=== PATIENT | male | born 1950 | race Caucasian/White ===

== ENCOUNTER 2017-07-06 06:16 | Day surgery (SDC) | payer OTHER ==
--- NOTE | 2017-07-05 15:08 | HP ---
CC: Dr. Wilder DeL a Garza DATE OF ADMISSION: 07/06/2017. AGE: 66-year-old male. ADMITTING DIAGNOSES: 1. Hematuria. 2. Recurrent superficial bladder cancer. PLANNED PROCEDURE: Transurethral resection of bladder tumor. SURGEON: Dr. Andrew. HISTORY OF PRESENT ILLNESS: Anselmo Zuleta is a 66-year-old gentleman with a long- standing smoking hi story and a history of recurrent superficial bladder cancer. He had undergone cystoscopy in my office on April 06 which had seen multiple superficial papillary tumors in the anterior bladder neck. There was no evidence of muscle invasive appearing tumor. PAST MEDICAL HISTORY: Significant for: 1. Recurrent superficial bladder cancer. 2. History of renal calculi. 3. Hypertension. MEDICATIONS ON ADMISSION: 1. Diltiazem 180 mg daily. 2. Losartan potassium 100 mg daily. 3. Hydrochlorothiazide 12.5 mg daily. 4. Aspirin mlak-j-gyfczh daily. 5. Fish oil and supplements. ALLERGIES: No known drug allergies. PHYSICAL EXAMINATION GENERAL: Pleasant, healthy-appearing, middle-aged gentleman. VITAL SIGNS: Blood pressure 130/92, pulse 100 per minute and regular, oxygen saturation 93 percent o n room air. CARDIOVASCULAR: Regular rate and rhythm. S1, S2. LUNGS: Clear bilaterally. ABDOMEN: Soft without masses. IMPRESSION AND PLAN: Okbin-lzco-vehj-old gentleman with a long-standing smoking history and a histo ry of recurrent superficial bladder cancer for which he has had multiple procedures over the last eig ht to nine years. He is now being brought in for transurethral resection of what appear to be multip le superficial bladder tumors. [id number]/[facility] #: [id number]
[~2017-07-06 06:16] MED LIST: Buffered Lidocaine 0.9% SYRIN* 5 ML/SYR SYRINGE INTRADERM ONE; Dexamethasone IV* 4 MG/ML 1 ML (4 MG) IV SLOW PU ONE; Famotidine IV* 10 MG/ML 2 ML (20 mg) IV ONE
[2017-07-06] MEDS ORDERED: Famotidine IV* 10 MG/ML 2 ML (20 mg) ONE (06:48)
[2017-07-06] MEDS ORDERED: cefTRIAXone(*) 2 GM ADDV.VIAL IVPB ONE (06:49)
[2017-07-06] MEDS ORDERED: Buffered Lidocaine 0.9% SYRIN* 5 ML/SYR SYRINGE ONE (06:49)
[2017-07-06] MEDS ORDERED: Dexamethasone IV* 4 MG/ML 1 ML (4 MG) ONE (06:49)
[2017-07-06] MEDS ORDERED: Propofol* 10 MG/ML 20 ML BTL IV PUSH ONE (07:41)
[2017-07-06] MEDS ORDERED: Lidocaine 2% PF * 5 ML VIAL ONE (07:42)
[2017-07-06] MEDS ORDERED: Midazolam* 1 MG/ML 2 ML VIAL (2 MG) ONE (07:42)
[2017-07-06] MEDS ORDERED: fentaNYL* 50 MCG/ML 2 ML VIAL (100 MCG VIAL) ONE (07:42)
[2017-07-06] MEDS ORDERED: HYDROcodone/ACETAMIN 5-325 MG* 1 TAB PO PRN (07:47)
[2017-07-06] MEDS ORDERED: fentaNYL* 50 MCG/ML 2 ML VIAL (100 MCG VIAL) IV PRN (07:47)
[2017-07-06] MEDS ORDERED: PROCHLORPERAZINE INJ 5 MG/ML 2 ML VIAL IV PRN (07:47)
[2017-07-06] MEDS ORDERED: oxyCODONE/Acetamin 5/325 MG* TAB PO PRN (07:47)
[2017-07-06] MEDS ORDERED: EPHEDrine (Pressors)* 50 MG/ML VIAL ONE (08:06)
[2017-07-06] MEDS ORDERED: Ondansetron INJ* 2 MG/ML VIAL ONE (08:20)
[2017-07-06] MEDS ORDERED: Furosemide IV* 10 MG/ML 2 ML VIAL (20 MG) ONE (08:25)
[2017-07-06] MEDS ORDERED: mitoMYcin PWD* 40 MG in Sterile Water for Inj* 40 ML IRRIGATION ONE (10:00)
--- NOTE | 2017-07-06 10:53 | OP ---
CC: Dr. Wilder De La Garza; Dr. Andrew OPERATIVE REPORT: DATE OF OPERATION: 07/06/17 DATE OF : 54 SURGEON: Ted Andrew MD ANESTHESIOLOGIST: Dr. Lua. ANESTHESIA: General. PRE-OP DIAGNOSIS: Recurrent superficial bladder cancer. POST-OP DIAGNOSIS: Recurrent superficial bladder cancer. OPERATIVE PROCEDURE: 1. Transurethral resection and fulguration of bladder tumor (3 to 4 cm). 2. Transurethral incision of bladder neck and prostate. COMPLICATIONS: None. POSTOPERATIVE CONDITION: Stable. BLOOD LOSS: Less than 25 cc. OPERATIVE FINDINGS: Recurrent superficial bladder tumor, anterior bladder neck close to prostatic ur ethra. INDICATIONS: Anselmo Zuleta is a 66-year-old gentleman with a longstanding smoking history and a histo ry of recurrent superficial bladder cancer. DESCRIPTION OF PROCEDURE: After induction of general anesthesia, the patient was placed in dorsal li thotomy position. Sequential compression devices were in place and functioning. Initial cystoscopy revealed normal-appearing urethra. The patient is status post transurethral resection of prostate an d there was mild regrowth noted in the left lobe. The bladder was examined. The right and left uret eral orifices were normal in position and configuration. There were few areas of scarring noted at t he site of previous transurethral resection in the bladder. At the anterior bladder neck close to the prostatic urethra, there was a papillary tumor with another smaller tumor adjacent to it. None of these had an appearance suspicious for invasive cancer. Usin g a resectoscope, the tumor was completely resected and was sent for histopathology. Because of the proximity of the tumor to the prostatic urethra, I elected to proceed with a transurethral incision o f the bladder neck and prostate in an effort to open up the prostatic fossa more completely to intrav esical BCG treatments, which will be instilled a few weeks after the surgical procedure. Transurethr al incision of the bladder neck and prostate was carried out using the right angle knife electrode at the 12, 5, and 7 o'clock positions. Once this was successfully done, hemostasis was secured using t he coagulating current. A 22-Greek Penn catheter was introduced without difficulty and connected t o drainage bag. The patient tolerated the procedure satisfactorily and was transferred back to the [facility] area in stable condition. [id number]/[facility] #: [id number]
[2017-07-06 12:04] VITALS: BP 110/69
== END 2017-07-06 12:05 | disposition home or self-care (01) ==
LOC: OR 06:16
PROVIDERS: ATTEND Urology
DX: C67.5 Malignant neoplasm of bladder neck (principal); I10 Essential (primary) hypertension; J45.909 Unspecified asthma, uncomplicated; R31.9 Hematuria, unspecified; Z87.891 Personal history of nicotine dependence
CPT/HCPCS: 88305; J0696; J1100; J1940; J2250; J2405; J2704; J3010; J9280

== ENCOUNTER 2017-12-12 07:30 | Inpatient (IN) | payer OTHER, MEDICARE ==
[2018-01-02] MEDS ORDERED: Famotidine IV* 10 MG/ML 2 ML (20 mg) IV ONE (06:00)
[2018-01-02] MEDS ORDERED: Buffered Lidocaine 0.9% SYRIN* 5 ML/SYR SYRINGE INTRADERM ONE (06:00)
[2018-01-02] MEDS ORDERED: Gabapentin CAP(*) 300 MG PO ONE (06:00)
--- OUTSIDE RECORDS SUMMARY | 2018-01-02 08:39 | XMS REPORT ---
:1950 External Reference #:[id number] Author Organization [facility] Address [address] [place] [address] [place] [address] Phone [phone] Care Team Providers Name Role Phone Wilder De La Garza M.D. Primary Care Physician Unavailable Payers Type Date Identification Numbers Payment Provider Subscriber Commercial Policy Number: [id number] [employer] Anselmo Zuleta [employer] Number: [id number] [address] PayID: [id number] [place] [address] Problems Date Description Provider Status Onset: H/O: hypertension Active Onset: History of malignant neoplasm of Active bladder Onset: 03/25/2015 Localized, primary osteoarthritis Melvin Larry M.D. Active Family History Date Family Member(s) Problem(s) Comments General Heart Disease General Cancer Social History Type Date Description Comments Lives With ETOH Use Occasionally consumes alcohol Smoking Patient is a former smoker Exercise Type/Frequency Exercises regularly Allergies, Adverse Reactions, Alerts Date Description Reaction Status Severity Comments 03/24/2015 NKDA active Medications Medication Date Status Form Strength Qnty SIG Indications Ordering Provider Hydrocodone-Ibuprofen 11/10/ Active Tablets 7.5-200mg 42tab 1 -2 Melvin 2017 s tabs Laron, daily M.D. prn Hydrocodone-Ibuprofen 03/09/ Active Tablets 5-200mg 42tab 1 to 2 M17.11 Melvin 2016 s tablaura StacyLaron, daily M.D. as needed Diltiazem CD / Active Caps ER 180mg 1 by Unknown 0000 24HR mouth every day Hydrochlorothiazide / Active Tablets 12.5mg 1 by Unknown 0000 mouth every day Losartan Potassium / Active Tablets 100mg 1 by Unknown 0000 mouth every day [place] 05/05/ Hx Tablets 5-325mg 42tab 1-2 by Melvin 2016 - s mouth Laron, 11/08/ daily M.D. 2018 as needed Medications Administered in Office Medication Date Status Form Strength Qnty SIG Indications Ordering Provider Synvisc Or Administered Injection Melvin Synvisc-One 017 Laron, Injection 1 MG M.D. Synvisc Or Administered Injection Adele Synvisc-One 017 Wellings, Injection 1 MG PA Synvisc Or Administered Injection Emely Synvisc-One 017 Osman, M.D. Injection 1 MG Synvisc Or Administered Injection Melvin Synvisc-One 016 Laron, Injection 1 MG M.D. Synvisc Or Administered Injection Melvin Synvisc-One 016 Laron, Injection 1 MG M.D. Synvisc Or Administered Injection Melvin Synvisc-One 016 Laron, Injection 1 MG M.D. Vital Signs Date Vital Result Comment 12/21/2017 Height 73 inches 6'1" Weight 256.00 lb Heart Rate 87 /min BP Systolic 138 mmHg BP Diastolic 86 mmHg Respiratory Rate 17 /min Body Temperature 97.6 F Pain Level 7 BMI (Body Mass Index) 33.8 kg/m2 11/23/2017 Height 73 inches 6'1" Weight 250.00 lb BP Systolic 130 mmHg BP Diastolic 80 mmHg Respiratory Rate 18 /min Pain Level 7 BMI (Body Mass Index) 33.0 kg/m2 11/09/2017 Height 73 inches 6'1" Weight 250.00 lb Heart Rate 87 /min Respiratory Rate 15 /min Body Temperature 97.4 F Pain Level 4 BMI (Body Mass Index) 33.0 kg/m2 03/09/2017 Height 73 inches 6'1" Weight 240.00 lb Heart Rate 87 /min BP Systolic 131 mmHg BP Diastolic 86 mmHg Body Temperature 97.1 F BMI (Body Mass Index) 31.7 kg/m2 03/02/2017 Height 73 inches 6'1" Weight 240.00 lb BP Systolic 118 mmHg BP Diastolic 76 mmHg Respiratory Rate 18 /min Pain Level 3 BMI (Body Mass Index) 31.7 kg/m2 02/23/2017 Height 73 inches 6'1" Weight 240.00 lb Heart Rate 78 /min BP Systolic 134 mmHg BP Diastolic 92 mmHg Pain Level 0 BMI (Body Mass Index) 31.7 kg/m2 05/19/2016 Height 73 inches 6'1" Weight 245.00 lb per patient BP Systolic Sitting 138 mmHg BP Diastolic Sitting 90 mmHg BMI (Body Mass Index) 32.3 kg/m2 05/12/2016 Height 73 inches 6'1" Weight 245.00 lb BP Systolic Sitting 148 mmHg BP Diastolic Sitting 88 mmHg BMI (Body Mass Index) 32.3 kg/m2 05/05/2016 Height 73 inches 6'1" Heart Rate 59 /min BP Systolic Sitting 144 mmHg BP Diastolic Sitting 88 mmHg Pain Level 4 03/31/2016 Height 73 inches 6'1" BP Systolic Sitting 142 mmHg BP Diastolic Sitting 88 mmHg 05/28/2015 Height 73 inches 6'1" Weight 250.00 lb Pain Level 0 BMI (Body Mass Index) 33.0 kg/m2 03/25/2015 Height 73 inches 6'1" Weight 250.00 lb Heart Rate 90 /min BP Systolic 118 mmHg BP Diastolic 79 mmHg Respiratory Rate 18 /min Pain Level 5 BMI (Body Mass Index) 33.0 kg/m2 Results Description No Information Procedures Date CPT Code Description Status 03/09/2017 Inject/Drain Joint/Bursa Major W/O US Completed 03/02/2017 Inject/Drain Joint/Bursa Major W/O US Completed 02/23/2017 Inject/Drain Joint/Bursa Major W/O US Completed 05/19/2016 Inject/Drain Joint/Bursa Major W/O US Completed 05/12/201673911 Inject/Drain Joint/Bursa Major W/O US Completed 05/05/201667464 Inject/Drain Joint/Bursa Major W/O US Completed Encounters Type Date Location Provider CPT E/M Dx Office Visit 11/23/2017 [facility] 18984 M17.11 11:30a [facility] Office Visit 11/09/2017 [facility] 90709 M17.11 11:30a [facility] Office Visit 03/31/2016 [facility] 18522 M17.11 9:30a [facility] Office Visit 05/28/2015 [facility], 38699 M17.11 9:00a [facility] Office Visit 03/25/2015 [facility], 28174 M17.11 3:00p [facility] Plan of Care Future Appointment(s):01/02/2018 7:30 am - Marlo Ca PA-C at [facility]01/02/2018 7:30 am - [facility] Larry M.D. at [facility]
[2018-01-02] MEDS ORDERED: fentaNYL* 50 MCG/ML 2 ML VIAL (100 MCG VIAL) ONE (08:52)
[2018-01-02] MEDS ORDERED: Midazolam* 1 MG/ML 5 ML VIAL (5 MG) ONE (08:52)
[2018-01-02] MEDS ORDERED: Famotidine IV* 10 MG/ML 2 ML (20 mg) ONE (09:03)
[2018-01-02] MEDS ORDERED: Gabapentin CAP(*) 100 MG ONE ×2 (09:03→14:54)
[2018-01-02] MEDS ORDERED: ceFAZolin 2 GM PREMIX (*) 2 GM/50 ML BAG IVPB ONE (09:03)
[2018-01-02] MEDS ORDERED: Buffered Lidocaine 0.9% SYRIN* 5 ML/SYR SYRINGE ONE (09:03)
[2018-01-02] MEDS ORDERED: HYDROmorphone INJ* 0.5 MG/0.5 ML SYRINGE IV PRN (10:24)
[2018-01-02] MEDS ORDERED: Acetaminophen TAB* 325 MG PO PRN (10:24)
[2018-01-02] MEDS ORDERED: Ondansetron INJ* 2 MG/ML VIAL IV PRN ×2 (10:24→13:30)
[2018-01-02] MEDS ORDERED: Naloxone* 0.4 MG/ML 1 ML VIAL IV PRN (10:24)
[2018-01-02] MEDS ORDERED: oxyCODONE TAB* 5 MG TAB PO PRN (10:24)
[2018-01-02] MEDS ORDERED: Gabapentin CAP(*) 100 MG PO ONE (10:26)
[2018-01-02] MEDS ORDERED: Propofol* 10 MG/ML 20 ML BTL IV PUSH ONE ×2 (11:27→12:42)
[2018-01-02] MEDS ORDERED: DiMENhydriNATE IV* 50 MG/ML VIAL ONE (11:27)
[2018-01-02] MEDS ORDERED: Ketorolac INJ* 30 MG/ML 1 ML VIAL ONE (11:27)
[2018-01-02] MEDS ORDERED: Lidocaine 2% PF * 5 ML VIAL ONE (11:27)
[2018-01-02] MEDS ORDERED: Dexamethasone IV* 4 MG/ML 1 ML (4 MG) ONE (11:27)
[2018-01-02] MEDS ORDERED: Bupivacaine-MPF SPINAL* 7.5 MG/ML - 2ML AMP ONE (11:28)
[2018-01-02] MEDS ORDERED: HYDROmorphone INJ* 0.5 MG/0.5 ML SYRINGE ONE (13:05)
[2018-01-02] MEDS ORDERED: Magnesium Hydroxide LIQ* 30 ML UDC PO PRN (13:30)
[2018-01-02] MEDS ORDERED: Morphine VIAL* 4 MG/ML VIAL (1 ml vial) IV PRN ×2 (13:30)
[2018-01-02] MEDS ORDERED: diPHENhydraMINE PO* 25 MG PO PRN (13:30)
[2018-01-02] MEDS ORDERED: Ondansetron ODT TAB* 4 MG PO PRN (13:30)
[2018-01-02] MEDS ORDERED: Cyclobenzaprine TAB* 10 MG PO PRN (13:30)
[2018-01-02] MEDS ORDERED: diPHENhydraMINE IV* 50 MG/ML 1 ml VIAL (BENADRYL) IV PRN (13:30)
--- NOTE | 2018-01-02 14:11 | RAD ---
HISTORY: right total knee arthroplasty 01/02/18 COMPARISONS: November 09, 2017 VIEWS: 2, Frontal and lateral views of the right knee FINDINGS: BONE DENSITY: Normal. BONES: The patient is status post right knee arthroplasty. There is no hardware failure or osteolysis. JOINTS: The patient is status post right knee arthroplasty. ALIGNMENT: There is no dislocation. SOFT TISSUES: There is postsurgical change to the soft tissues. OTHER FINDINGS: None. IMPRESSION: STATUS POST RIGHT KNEE ARTHROPLASTY.
[2018-01-02] MEDS ORDERED: traMADol TAB* 50 MG ONE (14:54)
[2018-01-02] MEDS ORDERED: Acetaminophen TAB* 325 MG ONE (14:54)
[2018-01-02] MEDS: D5W 1/2 NS 1000 ML BAG* 1,000 ML IV SCH (14:59)
[2018-01-02] MEDS: Acetaminophen TAB* 325 MG PO SCH ×2 (15:03→21:53)
[2018-01-02] MEDS: traMADol TAB* 50 MG PO SCH ×2 (15:03→19:54)
[2018-01-02] MEDS ORDERED: Warfarin TAB(*) 10 MG PO ONE (17:00)
[2018-01-02] MEDS: ceFAZolin 1 GM in Dextrose (*) 1 GM/50 ML BAG IVPB SCH (17:21)
[2018-01-02] MEDS: oxyCODONE TAB* 5 MG TAB PO PRN ×2 (17:44→22:54)
[2018-01-02] MEDS: Docusate CAP* 100 MG PO SCH (19:54)
[2018-01-02] MEDS: Magnesium Hydroxide LIQ* 30 ML UDC PO SCH (19:55)
--- NOTE | 2018-01-02 20:14 | CONS ---
[facility] MEDICINE CONSULTATION REPORT: DATE OF CONSULT: 01/02/18 PROVIDER: Catina Alvarez NP ATTENDING PHYSICIAN: Dr. Larry. CONSULTING PHYSICIAN: Dr. Emily Boykin (dictated by Catina Alvarez NP) REASON FOR CONSULT: Hypertension. HISTORY OF PRESENT ILLNESS: Mr. Zuleta is a 67-year-old gentleman, who carries a past history medical history significant for bladder cancer, kidney stones, hypertension, and osteoarthritis, who presented to [facility] today for an elective right total knee arthroplasty with Dr. Larry. Please see the dictated H and P from HERVE Tobias, for complete details. In brief, the patient had ongoing right knee pain and failed conservative therapy and elected to have a right total knee replacement with Dr. Larry. In the postoperative period, the patient has no complaints. He denies any cough or congestion. He denies fever or chills. Denies any chest pain or shortness of breath. Due to his past medical history of hypertension, we were asked by Orthopedics to consult and assist in management of his hypertension. PAST MEDICAL HISTORY: 1. Hypertension. 2. History of bladder cancer. 3. Kidney stones. 4. Osteoarthritis. PAST SURGICAL HISTORY: 1. Bladder tumor resection. 2. Lithotripsy. 3. Right total knee arthroscopy. 4. TURP with resection of the TCC urethra. MEDICATIONS: Outpatient medications: 1. Cialis. 2. Diltiazem 180 mg. 3. Hydrochlorothiazide 12.5 mg. 4. Losartan 100 mg. 5. Hydrocodone 5 mg/325. 6. Vitamin D 2000 units. 7. Fish oil. 8. Garlic oil. 9. Aspirin 81 mg p.o. daily. 10. Turmeric p.o. daily. ALLERGIES: No known drug allergies. FAMILY HISTORY: Father with a history of myocardial infarction and coronary artery disease. Mother with a history of hypertension. Diabetes, mother with a history of diabetes. Cancer, sister with a history of breast cancer, brother with a history of skin cancer. SOCIAL HISTORY: The patient quit smoking in 2009, prior to that he smoked approximately half a pack per day. He does report 2 to 3 drinks daily. Denies any illicit drug use. Surrogate decision maker in the event he is unable to make his own decisions is his daughter, Alberta Zuleta, her phone number is . He is a full code. REVIEW OF SYSTEMS: General: No fevers, no chills, no unintended weight loss. Cardiac: Denies any chest pain or edema. Respiratory: Denies any cough, congestion, hemoptysis, or shortness of breath. GI: Denies any nausea, vomiting, diarrhea, or abdominal pain. Denies any gross hematuria or dysuria. Neurologic: Denies any focal weakness or sensory loss. Eyes: No visual complaints. ENT: No dysphagia. Musculoskeletal: Denies any arthralgias or myalgias at this time. Skin: No rashes or lesions. Psych: Denies any history of depression or anxiety. PHYSICAL EXAM: Vital Signs: Temperature was 98.7, heart rate is 50, respirations are 20, O2 saturation 99%, blood pressure 135/79. General: Mr. Walker is a 67-year- old male, who is sitting on the bed in the recovery room. He is in no acute distress. Pupils are equal and reactive to light. ENT: Neck is supple. Mucous membranes are moist. Cardiac: S1, S2 regular rate and rhythm. No murmurs, rubs, or gallops. Respiratory: Lung sounds are clear to auscultation bilaterally. No accessory muscle use is noted. There are no wheezes, rales, or rhonchi. Abdomen is soft, nontender, nondistended. Bowel sounds are positive x4. Musculoskeletal: Pedal pulses are +2 bilaterally. Posterior tibial pulses are +2 bilaterally. He does have a dressing intact to his right knee. There is no drainage on the dressing. Skin: He does have a dressing intact to his right knee without drainage noted to the dressing. Neurologic: He is alert and oriented x3. There are no neuro focal deficits at this time. LABORATORY DATA: From 12/05/17, WBCs were 8.7, RBCs 4.55, hemoglobin 14, hematocrit was 42, platelet count was 252. Sodium 142, potassium 4.7, chloride was 106, glucose was 99, BUN was 19, creatinine 0.97, calcium was 9.2. IMPRESSION AND PLAN: Mr. Merlyn josue is a 67-year-old male with past medical history significant for hypertension, kidney stones, bladder cancer, and osteoarthritis, who presented for an elective right total knee arthroplasty with Dr. Larry. In the immediate postoperative period, he has no complaints. Hospital Medicine was asked to consult and assist in management of his hypertension. Our recommendations are as follows: 1. Status post right total knee arthroplasty. Management per Orthopedics. 2. Hypertension. I would continue his losartan and Cardizem with hold parameters; Cardizem for systolic blood pressure less than 100 and heart rate less than 60, losartan for systolic blood pressure less than 110. We will hold his hydrochlorothiazide at this time and reevaluate in the morning to restart. 3. DVT prophylaxis: Management per Orthopedics. 4. Code status: He is a full code. TIME SPENT: Time spent on this consultation was approximately 45 minutes, more than half the time was spent with the patient at the bedside reviewing the events leading thus far to his hospitalization, performing physical exam, and reviewing my plan of care. Thank you for including us in the care of this patient. CATINA ALVAREZ, SAMANTHA [id number]/[facility] #: [id number] BARB
--- NOTE | 2018-01-02 21:04 | OP ---
DATE OF OPERATION: 01/02/18 - ROOM #346 DATE OF : 54. SURGEON: Melvin Larry MD. COPY PREPARER: HERVE Howard. ANESTHESIA: Spinal and sedation. PRE-OP DIAGNOSIS: Osteoarthritis, right knee. POST-OP DIAGNOSIS: Osteoarthritis, right knee. OPERATIVE PROCEDURE: Right total knee arthroplasty. ESTIMATED BLOOD LOSS: Less than 50 cc. COMPLICATIONS: None. HARDWARE: Deandre Persona #9 femur, F tibia, 10 mm polyethylene spacer, 38 mm all polyethylene patellar button. SUMMARY: Mr. Zuleta is a 67-year-old male, who is having continued troubles with the right knee pain. He had undergone a knee arthroscopy with someone else and was told that the knee was fine. He presented to my office shortly thereafter for a second opinion and was nearly doum-[id number]-vkvi in the medial compartments. I discussed with him that he has osteoarthritis and that he would eventually need a knee arthroscopy. Initially, he was treated conservatively with antiinflammatories, physical therapy, and injections and has had worked for a period of time. 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 Risks of surgery such as infection, scar formation, stiffness, DVT, pulmonary embolism, hardware failure and continued pain were some of the risks discussed. He had been declared medically optimized and wished to proceed. Ashley Farias was present throughout the case and the case could not have been done without an inventory assistant. DESCRIPTION OF PROCEDURE: The patient was brought to the OR and spinal anesthesia was introduced. Penn catheter was placed. Tourniquet was placed over the proximal right thigh and was used during the case. Total tourniquet time would be approximately 75 minutes. Right knee was prepped and then draped. An incision was made just medial to the tibial tubercle and carried up to about 7 cm above the superior pole of the patella. Incision was carried down to the skin and subcutaneous fat. Small bleeders encountered were ligated using electrocautery. A sharp parapatellar arthrotomy was made and quite a bit of clear yellowish joint fluid was encountered. Soft tissues were sharply elevated from the medial side of the tibia and fat pad were sharply excised. Patella measured 26 mm in thickness and a nice 10 mm cut was taken. Osteophytes were also rongeured off the superior and lateral aspects of the patella. Patella was subluxated laterally and the knee was flexed up. Nice exposure of the distal femur was obtained. A step drill was used and opened the femoral canal. Intramedullary guide was placed. Guide was adjusted until it was parallel with the epicondyles and then it was pinned into place. Distal femoral cutting guide was pinned into place and the intramedullary guide was removed. Guide had been set at 2 mm and 2 degrees and distal femoral cut was taken. Cut, however was a little bit thin and it did not even reach the floor of the intercondylar notch. This was then recut for an additional 2 cm and it could be seen where it was probably sitting on a spur. Better cut was obtained. Femur was sized and he sat nicely for a 9. Hole was drilled through the superior hole and this came out nicely right on the top side of the femur. Anterior and posterior femoral cuts followed by the chamfer cuts were all taken. Attention was turned to the tibia. Step drill was used to open the tibial canal and intramedullary guide was placed. Outrigger was assembled and adjusted until it appeared it would take 2 mm from the worn medial side. Alignment drop adan was used to check the alignment and the alignment appeared to be very good. Proximal tibial cut was taken and it appeared a nice cut was obtained. A 10 mm spacer block was placed and at 90 degrees of flexion, he was loose as the system has designed to take an extra 2 mm posteriorly and with extension he now came out with a full extension locking out and was nice and stable. He had a bit of a flexion contracture at approximately 20 to 25 degrees prior to surgery. The tibia was sized and an F sat very nicely. Proximal tibia was drilled and then punched. Attention was returned to the femur. Notch cut was finished using the notch cut finishing guide and the stud holes were drilled with a 10 trial polyethylene, he came out nicely into full extension, flexed nicely and was stable throughout. Patella tracking was good without a button. Patella was sized and the 38 sat very nicely. Holes were drilled and trial was snapped into place. Again, patellar tracking was very good. Trial instrumentation was removed. The knee was copiously pulse lavaged. Cement was being prepared. Tibia, followed by femur, and patella were all cemented into place. Excess cement was removed and cement was allowed to harden. The knee was injected with 60 cc mixture of 0.5% Marcaine and 1% lidocaine with epinephrine, 60 cc were used posteriorly 10 into each of the gutters and then 20 into the suprapatellar pouch. Once the cement had hardened , knee was searched for excess cement and some small pieces were found. The knee was again copiously pulse lavaged and polyethylene was then snapped into place. Pulse lavage was used again to wash out the knee and parapatellar arthrotomy was repaired using interrupted #1 Vicryl sutures. Tourniquet was let down and no significant bleeding was encountered. The knee was again pulse lavaged and the subcutaneous tissues were reapproximated with 2-0 Vicryl and skin was closed using willard. Sterile dressing and Cryo/Cuff were all applied in the OR. The patient was then awakened and was stable on transfer to the recovery room. [id number]/[facility] #: [id number] BARB
[2018-01-03] MEDS: D5W 1/2 NS 1000 ML BAG* 1,000 ML IV SCH (01:10)
[2018-01-03] MEDS: traMADol TAB* 50 MG PO SCH ×4 (02:26→19:28)
[2018-01-03] MEDS: ceFAZolin 1 GM in Dextrose (*) 1 GM/50 ML BAG IVPB SCH ×2 (02:27→10:50)
[2018-01-03] MEDS: Acetaminophen TAB* 325 MG PO SCH ×3 (06:08→21:49)
[2018-01-03 06:09] LABS: Hematocrit 35 % (42-52); Platelet Count 176 10^3/ul (150-450)
[2018-01-03 06:16] LABS: INR 0.94 (0.77-1.02)
[2018-01-03 07:02] LABS: EGFR Non-African American 90.5 (>60)
[2018-01-03] MEDS: Losartan TAB* 25 MG PO SCH (07:50)
[2018-01-03] MEDS: Docusate CAP* 100 MG PO SCH ×2 (07:51→19:28)
[2018-01-03] MEDS: Cholecalciferol TAB* 1000 UNITS PO SCH (07:51)
[2018-01-03] MEDS: Aspirin EC TAB* 81 MG TAB.EC PO SCH (07:51)
[2018-01-03] MEDS: Magnesium Hydroxide LIQ* 30 ML UDC PO SCH ×2 (07:52→19:28)
[2018-01-03] MEDS: Diltiazem CD CAP* 180 MG PO SCH (08:02)
[2018-01-03] MEDS ORDERED: Diltiazem CD CAP* 180 MG PO SCH (09:00)
--- NOTE | 2018-01-03 09:03 | PN ---
Subjective Date of Service: 01/03/18 Interval History: Pt reports he is doing well and his pain is controlled. He has good ROM in knee. No nausea. Denies dizziness. He feels a little woozy from the pain medication but denies nausea/vomiting. no fever or chills. Denies CP/SOb Objective Active Medications: Acetaminophen (Tylenol Tab*) 975 mg PO Q8HR [facility] Last Admin: 01/03/18 06:08 Dose: 975 mg Aspirin (Aspirin Ec Tab*) 81 mg PO [facility] Last Admin: 01/03/18 07:51 Dose: 81 mg Bisacodyl (Dulcolax Supp*) 10 mg TX DAILY PRN PRN Reason: constipation Cholecalciferol (Vitamin D Tab*) 1,000 units PO [facility] Last Admin: 01/03/18 07:51 Dose: 1,000 units Cyclobenzaprine HCl (Flexeril Tab*) 10 mg PO TID PRN PRN Reason: SPASMS Diltiazem HCl (Cardizem Cd Cap*) 180 mg PO [facility] Last Admin: 01/03/18 08:02 Dose: Not Given Diphenhydramine HCl (Benadryl Iv*) 25 mg IV Q6H PRN PRN Reason: itching Diphenhydramine HCl (Benadryl Po*) 25 mg PO Q6H PRN PRN Reason: itching Docusate Sodium (Colace Cap*) 100 mg PO BID [facility] Last Admin: 01/03/18 07:51 Dose: 100 mg Heparin Sodium (Porcine) (Heparin Vial(*)) 5,000 units SUBCUT Q8HR [facility] Dextrose/Sodium Chloride (D5w 1/2 Ns 1000 Ml Bag*) 1,000 mls @ 100 mls/hr IV PER RATE [facility] Last Admin: 01/03/18 01:10 Dose: 100 mls/hr Cefazolin Sodium/Dextrose (Kefzol 1 Gm In Dextrose Duplex (*)) 1 gm in 50 mls @ 200 mls/hr IVPB Q8H [facility] Stop: 01/03/18 10:44 Last Admin: 01/03/18 02:27 Dose: 200 mls/hr Losartan Potassium (Cozaar Tab*) 100 mg PO [facility] Last Admin: 01/03/18 07:50 Dose: 100 mg Magnesium Hydroxide (Milk Of Magnesia Liq*) 30 ml PO BID [facility] Last Admin: 01/03/18 07:52 Dose: 30 ml Magnesium Hydroxide (Milk Of Magnesia Liq*) 30 ml PO Q6H PRN PRN Reason: constipation Morphine Sulfate (Morphine Vial*) 2 mg IV Q2H PRN PRN Reason: PAIN - SEVERE Morphine Sulfate (Morphine Vial*) 4 mg IV Q2H PRN PRN Reason: PAIN - BREAKTHROUGH Ondansetron HCl (Zofran Inj*) 4 mg IV Q6H PRN PRN Reason: nausea Ondansetron HCl (Zofran Odt Tab*) 4 mg PO Q6H PRN PRN Reason: NAUSEA Oxycodone HCl (Roxycodone Tab*) 5 mg PO Q4H PRN PRN Reason: PAIN - MODERATE Last Admin: 01/02/18 22:54 Dose: 5 mg Pharmacy Profile Note (Coumadin Daily Reminder*) 1 note FOLLOW UP 1700 [facility] Last Admin: 01/02/18 17:24 Dose: 1 note Tramadol HCl (Ultram*) 50 mg PO Q6H [facility] Last Admin: 01/03/18 07:51 Dose: 50 mg Vital Signs - 8 hr 01/03/18 01/03/18 01/03/18 01:10 02:26 02:30 Temperature 98.2 F Pulse Rate 50 Respiratory 18 16 16 Rate Blood Pressure 142/71 (mmHg) O2 Sat by Pulse 98 Oximetry 01/03/18 01/03/18 01/03/18 02:32 04:30 07:24 Temperature 98.4 F Pulse Rate 45 Respiratory 18 24 Rate Blood Pressure 139/68 (mmHg) O2 Sat by Pulse 98 99 Oximetry 01/03/18 01/03/18 07:51 08:00 Temperature Pulse Rate Respiratory 18 18 Rate Blood Pressure (mmHg) O2 Sat by Pulse 99 Oximetry Oxygen Devices in Use Now: None Appearance: well developed 67 yo male A+O x3 in NAD Eyes: No Scleral Icterus, PERRLA Ears/Nose/Mouth/Throat: Mucous Membranes Moist Respiratory: Symmetrical Chest Expansion and Respiratory Effort, Clear to Auscultation Cardiovascular: NL Sounds; No Murmurs; No JVD, RRR, No Edema Abdominal: NL Sounds; No Tenderness; No Distention Extremities: No Clubbing, Cyanosis, - - right with with radha bandage and cryo- unit intact - good sensation throughout Skin: No Rash or Ulcers, No Nodules or Sclerosis Neurological: Alert and Oriented x 3, NL Sensation, NL Muscle Strength and Tone Lines/Tubes/Other Access: Clean, Dry and Intact Peripheral IV Nutrition: Taking PO's Result Diagrams: 01/03/18 05:48 01/03/18 05:48 Assess/Plan/Problems-Billing Assessment: 67 yo male with PMH of HTN, bladder ca who underwent an elective right total knee arthroplasty on 01/[address] Larry. [facility] was asked to consult for co-medical management of HTN - Patient Problems (1) Status post total right knee replacement Comment: - Dispo per Ortho Team - POD #1 - PT/OT - Bowel Regimen - Pain control (2) HTN (hypertension) Comment: - blood pressures stable, continue home dose losartan, cardizem - restart HCTZ in am. (3) DVT prophylaxis Comment: Per Ortho team. HSQ, started on coumadin (4) Full code status Status and Disposition: Dispo per Ortho. tentative plan to send patient home tomorrow. Hypertension well controlled. Hospital medicine is signing off.
--- NOTE | 2018-01-03 10:09 | PN ---
Progress Note - Progress Note Date of Service: 01/03/18 SOAP: Subjective: []Patient seen OOB in chair. He is feeling very well with well controlled knee pain. He did very well participating with physical therapy, and has done the stairs. He denies chest pain, shortness of breath, dizziness, leg numbness. Plans for tentative DC plan to home tomorrow. Objective: [] Vital Signs Temp 98.4 F 01/03/18 07:24 Pulse 45 01/03/18 07:24 Resp 18 01/03/18 08:00 BP 139/68 01/03/18 07:24 Pulse Ox 99 01/03/18 08:00 Intake & Output 01/02/18 01/03/18 01/03/18 18:59 06:59 18:59 Intake Total 2250 3025 Output Total 750 1050 Balance 1500 1975 Weight 252 lb 12.8 oz Intake: IV Fluids 1800 985 D5W 1/2 NS 985 LR 1800 IVPB 50 ABX - CEFAZOLIN 50 Oral 450 1990 Output: Penn 700 1050 Estimated Blood Loss 50 Laboratory Last Values Hgb 12.0 g/dl (14.0-18.0) L 01/03/18 05:48 Hct 35 % (42-52) L 01/03/18 05:48 Plt Count 176 10^3/ul (150-450) 01/03/18 05:48 MPV 8.0 um3 (7.4-10.4) 01/03/18 05:48 INR (Anticoag Therapy) 0.94 (0.77-1.02) 01/03/18 05:48 Sodium 139 mmol/L (135-145) 01/03/18 05:48 Potassium 4.2 mmol/L (3.5-5.0) 01/03/18 05:48 Chloride 110 mmol/L (101-111) 01/03/18 05:48 Carbon Dioxide 23 mmol/L (22-32) 01/03/18 05:48 Anion Gap 6 mmol/L (2-11) 01/03/18 05:48 BUN 21 mg/dL (6-24) 01/03/18 05:48 Creatinine 0.85 mg/dL (0.67-1.17) 01/03/18 05:48 Est GFR ( Amer) 109.5 (>60) 01/03/18 05:48 Est GFR (Non-Af Amer) 90.5 (>60) 01/03/18 05:48 BUN/Creatinine Ratio 24.7 (8-20) H 01/03/18 05:48 Glucose 193 mg/dL (70-100) H 01/03/18 05:48 Calcium 8.1 mg/dL (8.6-10.3) L 01/03/18 05:48 General: Well appearing, NAD RLE: Dressing CDI without surrounding erythema. Thigh is soft. Sensation intact to light touch distally. DF/PF intact. DP2+, capillary refill less than two seconds distally. BL LE calves supple and nontender without erythema, edema or palpable cords. Assessment: []POD 1 sp right total knee arthroplasty 01/02 Dr Larry Plan: []WBAT PT/OT heparin, coumadin 6 mg today Plan for DC home tomorrow with VNS/ home PT Appreciate medicine consult for hypertension
[2018-01-03] MEDS: Heparin VIAL(*) 5000 UNITS/ML VIAL (FIVE THOUSAND) SUBCUT SCH ×2 (13:09→21:50)
[2018-01-03] MEDS ORDERED: Warfarin TAB(*) 6 MG PO ONE (18:00)
[2018-01-03] MEDS: oxyCODONE TAB* 5 MG TAB PO PRN (21:14)
[2018-01-04] MEDS: oxyCODONE TAB* 5 MG TAB PO PRN ×3 (01:52→09:57)
[2018-01-04] MEDS: traMADol TAB* 50 MG PO SCH ×3 (01:52→13:26)
[2018-01-04] MEDS: Acetaminophen TAB* 325 MG PO SCH ×2 (05:56→13:27)
[2018-01-04] MEDS: Heparin VIAL(*) 5000 UNITS/ML VIAL (FIVE THOUSAND) SUBCUT SCH ×2 (05:58→13:30)
[2018-01-04 07:18] LABS: Hematocrit 36 % (42-52); Hemoglobin 12.3 g/dl (14.0-18.0); Mean Platelet Volume 8.5 um3 (7.4-10.4); Platelet Count 177 10^3/ul (150-450)
[2018-01-04 07:19] LABS: INR 1.03 (0.77-1.02)
[2018-01-04] MEDS: Diltiazem CD CAP* 180 MG PO SCH (08:06)
[2018-01-04] MEDS: Magnesium Hydroxide LIQ* 30 ML UDC PO SCH (08:10)
[2018-01-04] MEDS: Cholecalciferol TAB* 1000 UNITS PO SCH (08:11)
[2018-01-04] MEDS: Aspirin EC TAB* 81 MG TAB.EC PO SCH (08:11)
[2018-01-04] MEDS: Docusate CAP* 100 MG PO SCH (08:11)
[2018-01-04] MEDS: Losartan TAB* 25 MG PO SCH (08:12)
[2018-01-04] MEDS ORDERED: Hydrochlorothiazide TAB* 25 MG PO SCH (09:00)
--- NOTE | 2018-01-04 09:15 | PN ---
Progress Note - Progress Note Date of Service: 01/04/18 SOAP: Subjective: Patient seen OOB in chair. He is feeling very well with well controlled knee pain this morning. He did very well participating with physical therapy, and has done the stairs. He does endorse significant pain overnight. He denies chest pain, shortness of breath, dizziness, leg numbness. Plan to discharge home today if tolerates PT. VSS overnight. Objective: Vital Signs Temp 98.6 F 01/04/18 07:36 Pulse 55 01/04/18 07:36 Resp 18 01/04/18 08:11 BP 128/78 01/04/18 07:36 Pulse Ox 99 01/04/18 07:36 Intake & Output 01/03/18 01/04/18 01/04/18 18:59 06:59 18:59 Intake Total 1442 2150 Output Total 2150 1350 Balance -708 800 Intake: IV Fluids 992 D5W 1/2 NS 992 IVPB 100 ABX - CEFAZOLIN 100 Oral 350 2150 Output: Urine 2150 1350 Other: Estimated Void Medium # Voids 1 Laboratory Results - last 24 hr 01/04/18 01/04/18 06:15 06:15 Hgb 12.3 L Hct 36 L Plt Count 177 MPV 8.5 INR (Anticoag Therapy) 1.03 H General: Well appearing, NAD RLE: Dressing CDI without surrounding erythema. Incision intact with no purulent drainage, warmth. Thigh is soft. Sensation intact to light touch distally. DF/PF intact. DP2+, capillary refill less than two seconds distally. BL LE calves supple and nontender without erythema, edema or palpable cords. Assessment: POD #2 S/P R TKA with Dr. Larry on 01/02/18. Plan: - WBAT - PT/OT - Heparin, coumadin 10 mg today if still in house - Plan for DC home today with VNS/ home PT - Appreciate medicine consult for hypertension
--- NOTE | 2018-01-04 13:19 | DS ---
Amended report to enter co-signing physician. DISCHARGE SUMMARY: DATE OF ADMISSION: 01/02/18 DATE OF DISCHARGE: 01/04/18 PHYSICIAN: Dr. Larry* (dictated by HERVE Tobias). CHIEF COMPLAINT: 1. Right knee pain. 2. Hypertension. 3. History of bladder cancer. 4. Kidney stones. DISCHARGE DIAGNOSES: 1. Status post right total knee arthroplasty. 2. Hypertension. 3. History of bladder cancer. 4. History of kidney stones. PROCEDURE: Right total knee arthroplasty. CONSULTATIONS: Physical Therapy and Occupational Therapy. BRIEF HISTORY: Mr. Zuleta is a 67-year-old male who had severe right knee pain , failed conservative treatment, and elected to undergo a right total knee arthroplasty on 01/02/[address] Larry. HOSPITAL COURSE: Mr. Zuleta was admitted to [facility] on 01/02/18 when he underwent a right total knee arthroplasty. Postoperatively he recovered on short stay surgical unit. On postop day 1, his Penn catheter was discontinued. He was able to urinate on his own. He was advanced to regular diet without difficulties and his pain was controlled with p.o. Tramadol. He was restarted on his home medications. His labs and vital signs remained stable. He was able to weight bear as tolerated on the right lower extremity. He advanced appropriately with physical therapy and occupational therapy. DVT prophylaxis was managed with Lovenox and Coumadin until it reached a therapeutic INR. On postoperative day 2, he was orthopedically and medically stable for discharge home with services. PHYSICAL EXAM: General: Well nourished, well developed in no acute distress. Alert and oriented. Vital Signs on day of discharge: Temperature 98.6, pulse 55, respirations 18, blood pressure 128/78. Right lower extremity dressing is clean, dry, and intact with no surrounding erythema. Incision is intact with no purulent discharge or warmth. Thigh is soft. Sensation is intact to light touch distally. He has intact dorsiflexion and plantar flexion with 2+ DP pulse. Capillary refill less than 2 seconds distally. Bilateral lower extremities, calves are supple, nontender without erythema, edema, or palpable cords. LABORATORY DATA: On date of discharge, hemoglobin 12.3, hematocrit 36, INR 1.03. RADIOGRAPHS: Postoperative radiographs show intact right knee arthroplasty with satisfactory prosthesis placement. DISCHARGE MEDICATIONS: 1. Acetaminophen 325 take up to 3 every 8 hours for pain. 2. Aspirin 81 mg daily. 3. Vitamin D 1000 international units daily. 4. Diltiazem 180 mg daily. 5. Hydrochlorothiazide 12.5 mg daily. 6. Losartan 100 mg daily. 7. Colace 100 mg up to 3 times a day as needed for constipation. 8. Garlic supplement. 9. Fish oil supplement. 10. Turmeric root supplement. 11. Tramadol 50 mg one to two tabs every 6 hours as needed for pain. 12. Warfarin 2 mg take as directed. CONDITION ON DISCHARGE: Stable. DISCHARGE INSTRUCTIONS: Mr. Zuleta is a 67-year-old male who is postoperative day 2 status post right total knee arthroplasty which was uncomplicated. He is orthopedically and medically stable for discharge home with services. Labs and vital signs are stable. He will restart his home medications. He will take 10 mg of Coumadin tonight and will have INR rechecked tomorrow. He will have INR draws on Mondays and with visiting nurse services. He will remain weightbearing as tolerated on the right lower extremity. He will have home PT twice a week. He will take tramadol for pain control. He will take Colace up to 3 times a day for constipation. He will have sutures and willard removed by visiting nurse services and will follow up with Dr. Larry in about 4 weeks for recheck. He was instructed to go immediately to the ER should he develop chest pain or shortness of breath. He will call our office if he develops fever , increasing pain, or increasing redness. HERVE TOBIAS [id number]/[facility] #: [id number] [facility]
[2018-01-04] MEDS ORDERED: Bisacodyl SUPP* 10 MG SUPP PR PRN (13:30)
[2018-01-04 13:57] VITALS: BP 143/78
== END 2018-01-04 13:57 | disposition home health service (06) | DRG 470 ==
LOC: AA 01-02 08:30 → SSU 01-02 14:35
PROVIDERS: ADMIT Orthopaedic Surgery; ATTEND Orthopaedic Surgery
PROC: 0SRC0J9 Replacement of Right Knee Joint with Synthetic Substitute, Cemented, Open Approach (ICD-10-PCS; principal; 2018-01-02 10:00)
DX: M17.11 Unilateral primary osteoarthritis, right knee (principal); M25.761 Osteophyte, right knee; M24.561 Contracture, right knee; H91.90 Unspecified hearing loss, unspecified ear; I10 Essential (primary) hypertension; N20.0 Calculus of kidney; Z85.51 Personal history of malignant neoplasm of bladder; Z82.49 Family history of ischemic heart disease and other diseases of the circulatory system; Z80.3 Family history of malignant neoplasm of breast; Z83.49 Family history of other endocrine, nutritional and metabolic diseases; Z87.891 Personal history of nicotine dependence; Z72.89 Other problems related to lifestyle; Z97.4 Presence of external hearing-aid; Z79.01 Long term (current) use of anticoagulants; Z79.82 Long term (current) use of aspirin; Z83.3 Family history of diabetes mellitus; Z87.19 Personal history of other diseases of the digestive system; Z81.1 Family history of alcohol abuse and dependence
CPT/HCPCS: 36415; 80048; 85014; 85018; 85049; 85610; A9270-GY; C1776; G8978-GP-CJ; G8978-GP-CK; G8979-GP-CI; G8979-GP-CK; G8980-GP-CK; G8987-GO-CI; G8988-GO-CI; G8989-GO-CI; J0690; J1100; J1170; J1240; J1644; J1885; J2250; J2704; J3010

== ENCOUNTER 2018-08-14 06:32 | Day surgery (SDC) | payer OTHER ==
[~2018-08-14 06:32] MED LIST changes: +Acetaminophen TAB* 325 MG PO PRN; -Buffered Lidocaine 0.9% SYRIN* 5 ML/SYR SYRINGE INTRADERM ONE; +Buffered Lidocaine 1% SYRIN* 1 ML/SYRINGE INTRADERM ONE; -Dexamethasone IV* 4 MG/ML 1 ML (4 MG) IV SLOW PU ONE; -Famotidine IV* 10 MG/ML 2 ML (20 mg) IV ONE
[2018-08-14] MEDS ORDERED: Midazolam* 1 MG/ML 2 ML VIAL (2 MG) ONE (07:34)
[2018-08-14 08:26] VITALS: BP 138/94
--- NOTE | 2018-08-14 09:23 | OP ---
DATE OF OPERATION: 08/14/18 - [facility] DATE OF : 54. SURGEON: Aris Nogueira MD. ANESTHESIA: Monitored anesthesia care. PRE-OP DIAGNOSIS: Cataract, right eye. POST-OP DIAGNOSIS: Cataract, right eye. OPERATIVE PROCEDURE: Extracapsular cataract extraction of the right eye with intraocular lens implant. IMPLANTS: SN60WF 19.0 diopter lens to the right eye. COMPLICATIONS: None. DESCRIPTION OF PROCEDURE: The patient was given phenylephrine 2.5 % and cyclopentolate 1% eye drops to the operative eye in the preoperative area. The patient was taken to the operating room where a time-out was taken to identify the correct patient, site, and side of surgery. The patient's right eye was prepped and draped in the usual sterile fashion with 5% Betadine. A second time- out was taken to verify the correct patient, side, and site of surgery, as well as the correct lens implant. A lid speculum was placed to the right eye. A 1mm paracentesis blade was used to make a clear corneal incision. Preservative-free 1% lidocaine was injected into the anterior chamber. DisCoVisc was then injected into the anterior chamber. A 2.75 mm keratome blade was used to make a triplanar incision. A cystotome initiated a capsulorrhexis, which was completed with Utrata forceps in a continuous and curvilinear manner. Hydrodissection of the lens was performed with BSS on a cannula. The lens could be spun in a capsular bag. The phacoemulsification handpiece was used with a divide-and- conquer technique to remove the nucleus. The I/A handpiece then removed the residual cortical lens material. DisCoVisc was injected to inflate the capsular bag. The planned SN60WF 19.0 diopter lens was injected into the capsular bag. The residual DisCoVisc was removed from the eye with the I/A handpiece. The corneal incisions were hydrated and no leaks occurred at physiologic pressure around 20 mmHg per palpation. The lid speculum was removed and drapes were removed. Maxitrol ointment was placed to the surface of the operative eye. An adhesive patch and shield was then placed on the operative eye. The patient was taken to the postoperative area in stable condition. [id number]/[facility] #: [id number] [facility]
[2018-08-14] MEDS ORDERED: Ketorolac 0.5% OPHTH (NF) 0.5 % 5 ML BTL ONE (11:07)
[2018-08-14] MEDS ORDERED: Neomycin/Polymy/Dex OPHTH.OIN* 3.5 GM ONE (11:07)
[2018-08-14] MEDS ORDERED: Phenylephrine 2.5% OPTH.SOL* 2 ML BTL ONE (11:07)
[2018-08-14] MEDS ORDERED: Povidone Iodine 5% OPTH* 30 ML BTL ONE (11:07)
[2018-08-14] MEDS ORDERED: acetaZOLAMIDE TAB* 250 MG ONE (11:07)
[2018-08-14] MEDS ORDERED: Tropicamide 1% OPTH.SOL* BTL ONE (11:07)
[2018-08-14] MEDS ORDERED: Cyclopentolate 1% OPTH.SOL* 2 ML BTL ONE (11:07)
[2018-08-14] MEDS ORDERED: Lidocaine 1%* 5 ML VIAL ONE (11:07)
[2018-08-14] MEDS ORDERED: Tetracaine 0.5% OPTH.SOL 4 ML* 1 DROP BTL ONE (11:07)
== END 2018-08-14 08:16 | disposition home or self-care (01) ==
LOC: OREAST 06:32
PROVIDERS: ATTEND Student in an Organized Health Care Education/Training Program
DX: H25.11 Age-related nuclear cataract, right eye (principal); H43.813 Vitreous degeneration, bilateral; I10 Essential (primary) hypertension; Z85.51 Personal history of malignant neoplasm of bladder; Z87.891 Personal history of nicotine dependence
CPT/HCPCS: A9270-GY; J2250; V2632

== ENCOUNTER 2019-01-24 05:37 | Observation (INO) | payer MEDICARE, OTHER ==
--- NOTE | 2019-01-19 18:34 | HP ---
CC: Dr. De La Garza ADMITTING HISTORY AND PHYSICAL: DATE OF ADMISSION: 01/24/19 ADMITTING DIAGNOSES: 1. Gross hematuria. 2. History of recurrent superficial bladder tumor (including involvement of prostatic urethra). PLANNED PROCEDURE: Transurethral resection of prostate. SURGEON: Dr. Andrew. 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 He recently had recurren t episodes of gross hematuria and on cystoscopy was noted to have a regrowth of tissue in the left lo be of the prostatic urethra with bleeding noted from that area and slight irregularity of the mucosa making me suspicious of whether or not he has underlying transitional cell carcinoma involving the pr ostatic urethra in the left lobe. There were no other tumors noted in the bladder and his most recen t CT urogram in 2018 had shown no involvement of the upper tract (he does have nonobstructing left re nal calculi). PAST MEDICAL HISTORY: Significant for: 1. Recurrent superficial bladder cancer including involvement of the prostatic urethra. 2. Hypertension. MEDICATIONS: On admission: 1. Diltiazem 180 mg a day. 2. Losartan 100 mg daily. 3. Hydrochlorothiazide 12.5 mg daily. ALLERGIES: No known drug allergies. SOCIAL HISTORY: Longtime 40+ year smoking history. FAMILY HISTORY: Negative for bladder or kidney cancer. REVIEW OF SYSTEMS: He is otherwise in excellent health. He denies any chest pain or shortness of br eath. There is no history of diabetes mellitus or any other major systemic illness. PHYSICAL EXAMINATION GENERAL: Reveals a pleasant, middle-aged gentleman. VITAL SIGNS: Blood pressure is 120/78, pulse 93 per minute and regular, temperature 97.4, oxygen sat uration 97% on room air. LUNGS: Clear bilaterally. CARDIOVASCULAR EXAM: Regular rate and rhythm. S1, S2. ABDOMEN: Soft without masses. IMPRESSION: A 68-year-old long-term smoker with history of recurrent episodes of gross hematuria, w hich appears to be coming from the left lobe of the prostatic urethra, possibly with underlying trans itional cell tumor in that area. PLAN: Planned procedure is transurethral resection of prostate. I have discussed the procedure in d etail with Fabian Merlyn including possible risks of bleeding, infection, permanent retrograde ejaculati on and he appeared to understand and wishes to proceed as planned. [id number]/[facility] #: [id number]
[~2019-01-24 05:37] MED LIST changes: -Acetaminophen TAB* 325 MG PO PRN
[2019-01-24] MEDS ORDERED: Lactated Ringers 1000 ML Bag* 1,000 ML IV SCH (06:00)
[2019-01-24] MEDS ORDERED: cefTRIAXone(*) 2 GM ADDV.VIAL IVPB ONE (06:13)
[2019-01-24 07:02] LABS: INR 0.93 (0.82-1.09)
[2019-01-24] MEDS ORDERED: Midazolam* 1 MG/ML 5 ML VIAL (5 MG) ONE (07:18)
[2019-01-24] MEDS ORDERED: Ondansetron INJ* 2 MG/ML VIAL IV PRN (07:26)
[2019-01-24] MEDS ORDERED: fentaNYL* 50 MCG/ML 2 ML VIAL (100 MCG VIAL) IV PRN (07:26)
[2019-01-24] MEDS ORDERED: Naloxone* 0.4 MG/ML 1 ML VIAL IV PRN (07:26)
[2019-01-24] MEDS ORDERED: Furosemide IV* 10 MG/ML 2 ML VIAL (20 MG) ONE (08:28)
[2019-01-24] MEDS ORDERED: Midazolam* 1 MG/ML 2 ML VIAL (2 MG) ONE (08:32)
[2019-01-24] MEDS ORDERED: Propofol* 10 MG/ML 20 ML BTL ONE (08:42)
[2019-01-24] MEDS ORDERED: Lidocaine 2% PF * 5 ML VIAL ONE (08:42)
[2019-01-24] MEDS ORDERED: Acetaminophen TAB* 325 MG PO PRN ×3 (09:10→12:00)
[2019-01-24] MEDS ORDERED: oxyCODONE/Acetamin 5/325 MG* TAB PO PRN (09:10)
[2019-01-24] MEDS: Lactated Ringers 1000 ML Bag* 1,000 ML IV SCH ×2 (10:36→17:16)
[2019-01-24] MEDS ORDERED: Ibuprofen TAB* 200 MG PO PRN (11:10)
[2019-01-24 13:30] LABS: BUN/Creatinine Ratio 21.6 (8-20); Calcium 8.6 mg/dL (8.6-10.3); EGFR Non-African American 105.8 (>60); Potassium 3.6 mmol/L (3.5-5.0)
[2019-01-24] MEDS ORDERED: Docusate CAP* 100 MG PO SCH (14:00)
--- NOTE | 2019-01-24 14:05 | OP ---
CC: Dr. Wilder De La Garza * DATE OF OPERATION: 01/24/19 - ROOM #332 DATE OF : 54 SURGEON: Dr. Andrew. ANESTHESIOLOGIST: Dr. Owens. ANESTHESIA: Spinal. PRE-OP DIAGNOSES: 1. History of superficial bladder cancer with involvement of prostatic urethra. 2. Recurrent episodes of gross hematuria. POST-OP DIAGNOSES: 1. History of superficial bladder cancer with involvement of prostatic urethra. 2. Recurrent episodes of gross hematuria. OPERATIVE PROCEDURE: Transurethral resection of prostate. COMPLICATIONS: None. BLOOD LOSS: Less than 50 cc. CATHETER: A 24-English Penn. OPERATIVE FINDINGS: Areas of irregular vascular regrowth of tissue in prostatic urethra (appearance suspicious for transitional cell carcinoma infiltrating into prostate). POSTOPERATIVE CONDITION: Stable. INDICATIONS: Anselmo Zuleta is a 68-year-old gentleman with a history of recurrent superficial bladder cancer including previous episodes where he had involvement of the prostatic urethra with transitional cell tumor. At that time , he had undergone transurethral resection of prostate and subsequent BCG instillations and he was recently evaluated for recurrent episodes of gross hematuria, which I suspect are coming from the left lobe of the prostatic urethra. DESCRIPTION OF PROCEDURE: After induction of spinal anesthesia, the patient was placed in dorsal lithotomy position. Sequential compression devices were in place and functioning. Initial evaluation revealed a normal-appearing urethra. In the prostatic urethra, there were multiple areas of irregular vascular-appearing re- growth of tissue more predominantly on the left side of the prostatic urethra. The bladder was examined. There was no evidence of any suspicious bladder lesions noted. There was slight irregularity of the mucosa on the left side of the bladder neck, but no evidence of any suspicious bladder lesions noted. Transurethral resection of prostate was carried out in the standard fashion from the bladder neck down to the veru. The tissue was moderately vascular and somewhat grippy in consistency and did not look like typical benign prostatic tissue during resection. I resected the superficial part of the tissue and then also did some deeper resection which was labeled separately and sent for histopathology. At the end of the procedure, hemostasis was secured and appeared satisfactory and the resected tissue was removed from the bladder using the [employer] evacuator throughout the procedure. A 24-English Penn was placed for bladder drainage. The patient tolerated the procedure satisfactorily and was transferred back to the recovery area in stable condition. [id number]/[facility] #: [id number] [facility]
[2019-01-24] MEDS ORDERED: Furosemide IV* 10 MG/ML 2 ML VIAL (20 MG) IV SLOW PU ONE (18:00)
[2019-01-24 19:22] VITALS: BP 121/73
[2019-01-25] MEDS ORDERED: Cholecalciferol TAB* 1000 UNITS PO SCH (09:00)
[2019-01-25] MEDS ORDERED: Hydrochlorothiazide TAB* 25 MG PO SCH (09:00)
[2019-01-25] MEDS ORDERED: Diltiazem CD CAP* 180 MG PO SCH (09:00)
[2019-01-25] MEDS ORDERED: GARLIC PO SCH (09:00)
[2019-01-25] MEDS ORDERED: Losartan TAB* 25 MG PO SCH (09:00)
--- NOTE | 2019-01-26 22:10 | DS ---
CC: Dr. Wilder De La Garza; Ted Andrew MD DISCHARGE SUMMARY: DATE OF ADMISSION: 01/24/19 DATE OF DISCHARGE: 01/24/19 SURGICAL PROCEDURE ON THIS ADMISSION: Transurethral resection of prostate. DISCHARGE DISPOSITION: Home. CONDITION AT DISCHARGE: Stable. HISTORY: Anselmo Zuleta is a 68-year-old gentleman with a history of recurrent superficial bladder can cer who was recently evaluated for hematuria and was noted to have what appears to be bleeding from t he left lobe of the prostatic urethra. For details, please see admitting history and physical dictated prior to the admission. HOSPITAL COURSE: On 01/24/19, Mr. Zuleta underwent transurethral resection of prostate under spinal anesthesia. Surgery was smooth and uneventful. I evaluated him in the evening on 01/24/19 and he wa s found to be stable for discharge and was discharged home with a Penn catheter for followup as per outpatient protocol. [id number]/[facility] #: [id number]
== END 2019-01-24 20:40 | disposition home or self-care (01) ==
LOC: OR 05:37 → SSU 09:10
PROVIDERS: ADMIT Urology; ATTEND Urology
DX: R31.0 Gross hematuria (principal); C68.0 Malignant neoplasm of urethra; I10 Essential (primary) hypertension; Z85.51 Personal history of malignant neoplasm of bladder; Z79.899 Other long term (current) drug therapy; Z87.891 Personal history of nicotine dependence
CPT/HCPCS: 36415; 80048; 85610; 85730; 88305; 88341; 88342; 96375; G0378; J0696; J1940; J2250; J2704

== ENCOUNTER 2019-09-15 15:56 | Emergency (ER) | payer OTHER ==
--- OUTSIDE RECORDS SUMMARY | 2019-09-15 16:09 | XMS REPORT | Continuity of Care Document ---
:1950 External Reference #:[id number] Author Name Wilder De La Garza M.D. Address [address] [place] [id number] Care Team Providers Name Role Phone Ted Andrew MD - Urology Care Team Information Personal Care Aide [phone] Problems Active Problems Provider Date Essential hypertension Wilder De La Garza M.D. Onset: 12/26/2011 Malignant tumor of urinary bladder Wildre De La Garza M.D. Onset: 12/26/2011 Social History Type Date Description Comments Sex Unknown Tobacco Use Start: Unknown Former cigarette smoker. Quit 2009. ETOH Use Drinks about 1-2 glasses of wine a day. Occasional scotch. Exercise Type/Frequency Walks twice a week Allergies, Adverse Reactions, Alerts Description No Known Drug Allergies Medications Active Medications SIG Qnty Indications Ordering Date Provider Sildenafil Citrate 1/2-1 by mouth as 6tabs Wilder De La Garza M.D. 10/19/2017 needed before 100mg Tablets intercourse Diltiazem HCL ER take 1 capsule 90caps I10 Wilder De La Garza M.D. 11/09/2015 Coated Beads daily 180mg Caps ER 24HR Vitamin D 2 po qd 30caps Wilder De La Garza M.D. 07/19/2012 1000Unit Capsules Losartan Potassium take 1 tablet daily 90tabs I10 Wilder De La Garza M.D. 2011 100mg Tablets Fish Oil 2 qd Wilder De La Garza M.D. 07/22/2011 1200mg Capsules Garlic Oil Wilder De La Garza M.D. 07/22/2011 Capsules Aspirin 1 by mouth every Unknown 81mg Tablets day DR Magnesium 1 tab by mouth once Unknown 300mg or twice a day Capsules Immunizations CPT Code Status Date Vaccine Lot # [id number] Given 03/15/2019 Influenza Virus Vaccine, Quadrivalent, 3 Yr > Quad, Preserv Free 30893 Given 04/18/2018 Influenza Virus Vaccine, Quadrivalent, 3 Yr > Quad, Preserv Free 61569 Given 10/19/2017 Prevnar-13 Pneumococcal Conjugate Vaccine [id number] 23410 Given 04/16/2016 Influenza Virus Vaccine, Quadrivalent, 3 Yr > [id number] Quad, Preserv Free 30897 Given 04/22/2015 Influenza Virus Vaccine, Quadrivalent, 3 Yr > [id number] Quad, Preserv Free 12005 Given 05/08/2014 Influenza Virus Vaccine, Quadrivalent, 3 Yr > Quad, Preserv Free 56858 Given 05/05/2012 Influenza Vaccine-Preservative Free 3 Yrs And Above 64034 Given 07/22/2011 Tdap (Adacel) [id number] 99456 Given 04/23/2009 Influenza Vaccine-Preservative Free 3 Yrs And [id number] Above 81409 Given 12/22/2003 Hepatitis A, Adult 29941 Given 07/04/2003 DT (Adult) Vital Signs Date Vital Result Comment 08/01/2019 11:39am Weight 247.00 lb Weight 112.039 kg BP Systolic 120 mmHg BP Diastolic 72 mmHg Heart Rate 84 /min Body Temperature 97.9 F Respiratory Rate 16 /min O2 % BldC Oximetry 98 % 05/08/2019 11:18am Weight 240.00 lb Weight 108.864 kg BP Systolic 138 mmHg BP Diastolic 80 mmHg Heart Rate 91 /min Body Temperature 97.8 F Respiratory Rate 16 /min O2 % BldC Oximetry 99 % Results Test Acquired Date Facility Test Result H/L Range Note Laboratory test 07/30/2019 [facility] Point of 107 mg /dL High 70-100 1 finding [phone] Care Glucose Comp Metabolic 07/16/2019 [facility] Sodium 139 mmol/ L Normal 135-145 Panel [phone] Potassium 4.1 mmol/L Normal 3.5-5.0 Chloride 108 mmol/L Normal 101-111 Co2 Carbon Dioxide 26 mmol/L Normal 22-32 Anion Gap 5 mmol/L Normal 2-11 Glucose 122 mg/dL High 70-100 Blood Urea Nitrogen 26 mg/dL High 6-24 Creatinine 0.89 mg/dL Normal 0.67-1.17 BUN/Creatinine Ratio 29.2 High 8-20 Calcium 8.8 mg/dL Normal 8.6-10.3 Total Protein 5.7 g/dL Low 6.4-8.9 Albumin 3.7 g/dL Normal 3.2-5.2 Globulin 2.0 g/dL Normal 2-4 Albumin/Globulin Ratio 1.9 Normal 1-3 Total Bilirubin 0.50 mg/dL Normal 0.2-1.0 Alkaline Phosphatase 61 U/L Normal 34-104 Alt 15 U/L Normal 7-52 Ast 17 U/L Normal 13-39 Egfr Non- 85.5 >60 Egfr 103.5 >60 2 Laboratory test 07/16/2019 [facility] Magnesium 2.1 mg/dL Normal 1.9-2.7 finding [phone] CBC Auto Diff 07/16/2019 [facility] White Blood 4.2 Normal 3.5-10.8 [phone] Count 10^3/uL Red Blood Count 2.60 10^6/uL Low 4.18-5.48 Hemoglobin 8.6 g/dL Low 14.0-18.0 Hematocrit 25 % Low 42-52 Mean Corpuscular Volume 98 fL High 80-94 Mean Corpuscular Hemoglobin 33 pg High 27-31 Mean Corpuscular HGB Conc 34 g/dL Normal 31-36 Red Cell Distribution Width 24 % High 10-15 Platelet Count 139 10^3/uL Low 150-450 Mean Platelet Volume 7.8 fL Normal 7.4-10.4 Abs Neutrophils 3.2 10^3/uL Normal 1.5-7.7 Abs Lymphocytes 0.4 10^3/uL Low 1.0-4.8 Abs Monocytes 0.5 10^3/uL Normal 0-0.8 Abs Eosinophils 0.1 10^3/uL Normal 0-0.6 Abs Basophils 0.0 10^3/uL Normal 0-0.2 Abs Nucleated RBC 0.0 10^3/uL Granulocyte % 76.9 % Lymphocyte % 9.8 % Monocyte % 11.1 % Eosinophil % 1.7 % Basophil % 0.5 % Nucleated Red Blood Cells % 0.1 Cell Morphology 07/16/2019 [facility] Polychromasia 1 + [phone] Anisocytosis 2+ Laboratory test 07/16/2019 [facility] Pathologist ( SEE NOTE) 3 finding [phone] Review Comp Metabolic 07/06/2019 [facility] Sodium 139 mmol/ L Normal 135-1 Panel [phone] Potassium 4.0 mmol/L Normal 3.5-5.0 Chloride 107 mmol/L Normal 101-111 Co2 Carbon Dioxide 27 mmol/L Normal 22-32 Anion Gap 5 mmol/L Normal 2-11 Glucose 121 mg/dL High 70-100 Blood Urea Nitrogen 24 mg/dL Normal 6-24 Creatinine 0.89 mg/dL Normal 0.67-1.17 BUN/Creatinine Ratio 27.0 High 8-20 Calcium 8.7 mg/dL Normal 8.6-10.3 Total Protein 5.9 g/dL Low 6.4-8.9 Albumin 3.6 g/dL Normal 3.2-5.2 Globulin 2.3 g/dL Normal 2-4 Albumin/Globulin Ratio 1.6 Normal 1-3 Total Bilirubin 0.40 mg/dL Normal 0.2-1.0 Alkaline Phosphatase 60 U/L Normal 34-104 Alt 12 U/L Normal 7-52 Ast 14 U/L Normal 13-39 Egfr Non- 85.5 >60 Egfr 103.5 >60 4 Laboratory test 07/06/2019 [facility] Magnesium 2.1 mg/dL Normal 1.9-2.7 finding [phone] CBC Auto Diff 07/06/2019 [facility] White Blood 3.8 Normal 3.5-10.8 [phone] Count 10^3/uL Red Blood Count 2.53 10^6/uL Low 4.18-5.48 Hemoglobin 8.3 g/dL Low 14.0-18.0 Hematocrit 24 % Low 42-52 Mean Corpuscular Volume 94 fL Normal 80-94 Mean Corpuscular Hemoglobin 33 pg High 27-31 Mean Corpuscular HGB Conc 35 g/dL Normal 31-36 Red Cell Distribution Width 22 % High 10-15 Platelet Count 105 10^3/uL Low 150-450 Mean Platelet Volume 7.8 fL Normal 7.4-10.4 Abs Neutrophils 2.7 10^3/uL Normal 1.5-7.7 Abs Lymphocytes 0.6 10^3/uL Low 1.0-4.8 Abs Monocytes 0.5 10^3/uL Normal 0-0.8 Abs Eosinophils 0.0 10^3/uL Normal 0-0.6 Abs Basophils 0.0 10^3/uL Normal 0-0.2 Abs Nucleated RBC 0.0 10^3/uL Granulocyte % 69.6 % Lymphocyte % 16.2 % Monocyte % 13.3 % Eosinophil % 0.4 % Basophil % 0.5 % Nucleated Red Blood Cells % 0.2 Comp Metabolic 07/02/2019 [facility] Sodium 140 mmol/ L Normal 135-145 Panel [phone] Potassium 4.1 mmol/L Normal 3.5-5.0 Chloride 108 mmol/L Normal 101-111 Co2 Carbon Dioxide 26 mmol/L Normal 22-32 Anion Gap 6 mmol/L Normal 2-11 Glucose 148 mg/dL High 70-100 Blood Urea Nitrogen 25 mg/dL High 6-24 Creatinine 0.83 mg/dL Normal 0.67-1.17 BUN/Creatinine Ratio 30.1 High 8-20 Calcium 8.8 mg/dL Normal 8.6-10.3 Total Protein 6.0 g/dL Low 6.4-8.9 Albumin 3.8 g/dL Normal 3.2-5.2 Globulin 2.2 g/dL Normal 2-4 Albumin/Globulin Ratio 1.7 Normal 1-3 Total Bilirubin 0.40 mg/dL Normal 0.2-1.0 Alkaline Phosphatase 63 U/L Normal 34-104 Alt 13 U/L Normal 7-52 Ast 15 U/L Normal 13-39 Egfr Non- 92.7 >60 Egfr 112.2 >60 5 Laboratory test 07/02/2019 [facility] Magnesium 2.1 mg/dL Normal 1.9-2.7 finding [phone] CBC Auto Diff 07/02/2019 [facility] White Blood 2.4 Low 3.5-10.8 [phone] Count 10^3/uL Red Blood Count 2.65 10^6/uL Low 4.18-5.48 Hemoglobin 8.5 g/dL Low 14.0-18.0 Hematocrit 25 % Low 42-52 Mean Corpuscular Volume 93 fL Normal 80-94 Mean Corpuscular Hemoglobin 32 pg High 27-31 Mean Corpuscular HGB Conc 34 g/dL Normal 31-36 Red Cell Distribution Width 20 % High 10-15 Platelet Count 84 10^3/uL Low 150-450 Mean Platelet Volume 8.0 fL Normal 7.4-10.4 Abs Neutrophils 1.5 10^3/uL Normal 1.5-7.7 Abs Lymphocytes 0.4 10^3/uL Low 1.0-4.8 Abs Monocytes 0.5 10^3/uL Normal 0-0.8 Abs Eosinophils 0.0 10^3/uL Normal 0-0.6 Abs Basophils 0.0 10^3/uL Normal 0-0.2 Abs Nucleated RBC 0.0 10^3/uL Granulocyte % 61.1 % Lymphocyte % 18.5 % Monocyte % 19.8 % Eosinophil % 0.3 % Basophil % 0.3 % Nucleated Red Blood Cells % 0.4 Manual 07/02/2019 [facility] Immature 12.0 % High 0 -9 Differential [phone] Granulocytes Neutrophil % 58.0 % Band % 3.0 % Normal 0-8 Lymphocytes % 14.0 % Monocytes % 16.0 % Metamyelocytes % 2.0 % Normal 0-2 Myelocytes % 7.0 % High 0-1 Nucleated Red Blood Cells/100 2.0 High 0-0 Polychromasia 1+ Anisocytosis 2+ Laboratory test 06/26/2019 [facility] Packed Cells SEE RESULTS 6 finding [phone] BELO <SEE NOTE> Type & Screen 06/26/2019 [facility] Patient Blood A Positive [phone] Type Antibody Screen NEGATIVE Laboratory test 06/26/2019 [facility] Magnesium 2.0 mg/dL Normal 1.9-2.7 finding [phone] Comp Metabolic 06/26/2019 [facility] Sodium 138 mmol/ L Normal 135-145 Panel [phone] Potassium 4.3 mmol/L Normal 3.5-5.0 Chloride 106 mmol/L Normal 101-111 Co2 Carbon Dioxide 27 mmol/L Normal 22-32 Anion Gap 5 mmol/L Normal 2-11 Glucose 103 mg/dL High 70-100 Blood Urea Nitrogen 22 mg/dL Normal 6-24 Creatinine 0.91 mg/dL Normal 0.67-1.17 BUN/Creatinine Ratio 24.2 High 8-20 Calcium 8.9 mg/dL Normal 8.6-10.3 Total Protein 5.9 g/dL Low 6.4-8.9 Albumin 3.7 g/dL Normal 3.2-5.2 Globulin 2.2 g/dL Normal 2-4 Albumin/Globulin Ratio 1.7 Normal 1-3 Total Bilirubin 0.60 mg/dL Normal 0.2-1.0 Alkaline Phosphatase 67 U/L Normal 34-104 Alt 14 U/L Normal 7-52 Ast 16 U/L Normal 13-39 Egfr Non- 83.4 >60 Egfr 100.9 >60 7 CBC Auto 06/26/2019 [facility] White Blood 1.1 10^3/ uL Low 3.5-10.8 Diff [phone] Count Red Blood Count 2.32 10^6/uL Low 4.18-5.48 Hemoglobin 7.4 g/dL Low 14.0-18.0 Hematocrit 21 % Low 42-52 Mean Corpuscular Volume 90 fL Normal 80-94 Mean Corpuscular Hemoglobin 32 pg High 27-31 Mean Corpuscular HGB Conc 35 g/dL Normal 31-36 Red Cell Distribution Width 17 % High 10-15 Platelet Count 34 10^3/uL Low 150-450 8 Mean Platelet Volume 8.6 fL Normal 7.4-10.4 Abs Neutrophils 0.4 10^3/uL Low 1.5-7.7 Abs Lymphocytes 0.3 10^3/uL Low 1.0-4.8 Abs Monocytes 0.4 10^3/uL Normal 0-0.8 Abs Eosinophils 0.0 10^3/uL Normal 0-0.6 Abs Basophils 0.0 10^3/uL Normal 0-0.2 Abs Nucleated RBC 0.0 10^3/uL Granulocyte % 34.5 % Lymphocyte % 27.1 % Monocyte % 36.8 % Eosinophil % 0.7 % Basophil % 0.9 % Nucleated Red Blood Cells % 0.4 Comp Metabolic 06/20/2019 [facility] Sodium 137 mmol/ L Normal 135-145 Panel [phone] Potassium 4.0 mmol/L Normal 3.5-5.0 Chloride 105 mmol/L Normal 101-111 Co2 Carbon Dioxide 26 mmol/L Normal 22-32 Anion Gap 6 mmol/L Normal 2-11 Glucose 113 mg/dL High 70-100 Blood Urea Nitrogen 32 mg/dL High 6-24 Creatinine 0.94 mg/dL Normal 0.67-1.17 BUN/Creatinine Ratio 34.0 High 8-20 Calcium 9.0 mg/dL Normal 8.6-10.3 Total Protein 5.8 g/dL Low 6.4-8.9 Albumin 3.7 g/dL Normal 3.2-5.2 Globulin 2.1 g/dL Normal 2-4 Albumin/Globulin Ratio 1.8 Normal 1-3 Total Bilirubin 0.50 mg/dL Normal 0.2-1.0 Alkaline Phosphatase 56 U/L Normal 34-104 Alt 12 U/L Normal 7-52 Ast 12 U/L Low 13-39 Egfr Non- 80.3 >60 Egfr 97.2 >60 9 Laboratory test 06/20/2019 [facility] Magnesium 1.7 mg/dL Low 1.9-2.7 finding [phone] CBC Auto Diff 06/20/2019 [facility] White Blood 2.7 Low 3.5-10.8 [phone] Count 10^3/uL Red Blood Count 2.34 10^6/uL Low 4.18-5.48 Hemoglobin 7.6 g/dL Low 14.0-18.0 Hematocrit 21 % Low 42-52 Mean Corpuscular Volume 91 fL Normal 80-94 Mean Corpuscular Hemoglobin 33 pg High 27-31 Mean Corpuscular HGB Conc 36 g/dL Normal 31-36 Red Cell Distribution Width 18 % High 10-15 Platelet Count 88 10^3/uL Low 150-450 Mean Platelet Volume 7.1 fL Low 7.4-10.4 Abs Neutrophils 2.2 10^3/uL Normal 1.5-7.7 Abs Lymphocytes 0.4 10^3/uL Low 1.0-4.8 Abs Monocytes 0.1 10^3/uL Normal 0-0.8 Abs Eosinophils 0.0 10^3/uL Normal 0-0.6 Abs Basophils 0.0 10^3/uL Normal 0-0.2 Abs Nucleated RBC 0.0 10^3/uL Granulocyte % 82.8 % Lymphocyte % 13.1 % Monocyte % 3.6 % Eosinophil % 0.2 % Basophil % 0.3 % Nucleated Red Blood Cells % 0.0 Type & Screen 06/20/2019 [facility] Patient Blood A Positive [phone] Type Antibody Screen NEGATIVE Laboratory test 06/20/2019 [facility] Packed SEE RESULTS 10 finding [phone] Cells BELO <SEE NOTE> CBC Auto Diff 06/13/2019 [facility] White Blood 10.5 10^3/uL Normal 3.5-5 [phone] Count 0.8 Red Blood Count 2.69 10^6/uL Low 4.18-5.48 Hemoglobin 8.6 g/dL Low 14.0-18.0 Hematocrit 24 % Low 42-52 Mean Corpuscular Volume 91 fL Normal 80-94 Mean Corpuscular Hemoglobin 32 pg High 27-31 Mean Corpuscular HGB Conc 35 g/dL Normal 31-36 Red Cell Distribution Width 16 % High 10-15 Platelet Count 161 10^3/uL Normal 150-450 Mean Platelet Volume 8.0 fL Normal 7.4-10.4 Abs Neutrophils 9.4 10^3/uL High 1.5-7.7 Abs Lymphocytes 0.2 10^3/uL Low 1.0-4.8 Abs Monocytes 0.9 10^3/uL High 0-0.8 Abs Eosinophils 0.0 10^3/uL Normal 0-0.6 Abs Basophils 0.0 10^3/uL Normal 0-0.2 Abs Nucleated RBC 0.0 10^3/uL Granulocyte % 89.5 % Lymphocyte % 2.2 % Monocyte % 8.2 % Eosinophil % 0.0 % Basophil % 0.1 % Nucleated Red Blood Cells % 0.0 Laboratory test 06/11/2019 [facility] Packed Cells SEE RESULTS 11 finding [phone] BELO <SEE NOTE> Type & Screen 06/11/2019 [facility] Patient Blood A Positive [phone] Type Antibody Screen NEGATIVE CBC Auto 06/11/2019 [facility] White Blood 3.1 10^3/ uL Low 3.5-10.8 Diff [phone] Count Red Blood Count 2.44 10^6/uL Low 4.18-5.48 Hemoglobin 7.7 g/dL Low 14.0-18.0 Hematocrit 22 % Low 42-52 Mean Corpuscular Volume 91 fL Normal 80-94 Mean Corpuscular Hemoglobin 31 pg Normal 27-31 Mean Corpuscular HGB Conc 34 g/dL Normal 31-36 Red Cell Distribution Width 17 % High 10-15 Platelet Count 111 10^3/uL Low 150-450 Mean Platelet Volume 7.5 fL Normal 7.4-10.4 Abs Neutrophils 2.3 10^3/uL Normal 1.5-7.7 Abs Lymphocytes 0.4 10^3/uL Low 1.0-4.8 Abs Monocytes 0.5 10^3/uL Normal 0-0.8 Abs Eosinophils 0.0 10^3/uL Normal 0-0.6 Abs Basophils 0.0 10^3/uL Normal 0-0.2 Abs Nucleated RBC 0.0 10^3/uL Granulocyte % 73.0 % Lymphocyte % 11.9 % Monocyte % 14.5 % Eosinophil % 0.4 % Basophil % 0.2 % Nucleated Red Blood Cells % 0.6 Laboratory test 06/11/2019 [facility] Magnesium 2.0 mg/dL Normal 1.9-2.7 finding [phone] Comp Metabolic 06/11/2019 [facility] Sodium 140 mmol/ L Normal 135-145 Panel [phone] Potassium 3.9 mmol/L Normal 3.5-5.0 Chloride 107 mmol/L Normal 101-111 Co2 Carbon Dioxide 27 mmol/L Normal 22-32 Anion Gap 6 mmol/L Normal 2-11 Glucose 147 mg/dL High 70-100 Blood Urea Nitrogen 20 mg/dL Normal 6-24 Creatinine 0.92 mg/dL Normal 0.67-1.17 BUN/Creatinine Ratio 21.7 High 8-20 Calcium 8.9 mg/dL Normal 8.6-10.3 Total Protein 5.7 g/dL Low 6.4-8.9 Albumin 3.4 g/dL Normal 3.2-5.2 Globulin 2.3 g/dL Normal 2-4 Albumin/Globulin Ratio 1.5 Normal 1-3 Total Bilirubin 0.50 mg/dL Normal 0.2-1.0 Alkaline Phosphatase 57 U/L Normal 34-104 Alt 12 U/L Normal 7-52 Ast 14 U/L Normal 13-39 Egfr Non- 82.3 >60 Egfr 99.6 >60 12 Comp Metabolic 06/06/2019 [facility] Sodium 141 mmol/ L Normal 135-145 Panel [phone] Potassium 4.2 mmol/L Normal 3.5-5.0 Chloride 109 mmol/L Normal 101-111 Co2 Carbon Dioxide 27 mmol/L Normal 22-32 Anion Gap 5 mmol/L Normal 2-11 Glucose 97 mg/dL Normal 70-100 Blood Urea Nitrogen 25 mg/dL High 6-24 Creatinine 0.95 mg/dL Normal 0.67-1.17 BUN/Creatinine Ratio 26.3 High 8-20 Calcium 8.8 mg/dL Normal 8.6-10.3 Total Protein 5.7 g/dL Low 6.4-8.9 Albumin 3.7 g/dL Normal 3.2-5.2 Globulin 2.0 g/dL Normal 2-4 Albumin/Globulin Ratio 1.9 Normal 1-3 Total Bilirubin 0.40 mg/dL Normal 0.2-1.0 Alkaline Phosphatase 59 U/L Normal 34-104 Alt 17 U/L Normal 7-52 Ast 15 U/L Normal 13-39 Egfr Non- 79.3 >60 Egfr 96.0 >60 13 Laboratory test 06/06/2019 [facility] Magnesium 2.0 mg/dL Normal 1.9-2.7 finding [phone] CBC Auto Diff 06/06/2019 [facility] White Blood 1.8 Low 3.5-10.8 [phone] Count 10^3/uL Red Blood Count 2.22 10^6/uL Low 4.18-5.48 Hemoglobin 7.0 g/dL Low 14.0-18.0 Hematocrit 20 % Low 42-52 Mean Corpuscular Volume 91 fL Normal 80-94 Mean Corpuscular Hemoglobin 32 pg High 27-31 Mean Corpuscular HGB Conc 35 g/dL Normal 31-36 Red Cell Distribution Width 16 % High 10-15 Platelet Count 50 10^3/uL Low 150-450 Mean Platelet Volume 8.0 fL Normal 7.4-10.4 Abs Neutrophils 0.8 10^3/uL Low 1.5-7.7 Abs Lymphocytes 0.5 10^3/uL Low 1.0-4.8 Abs Monocytes 0.6 10^3/uL Normal 0-0.8 Abs Eosinophils 0.0 10^3/uL Normal 0-0.6 Abs Basophils 0.0 10^3/uL Normal 0-0.2 Abs Nucleated RBC 0.0 10^3/uL Granulocyte % 42.7 % Lymphocyte % 24.8 % Monocyte % 31.8 % Eosinophil % 0.5 % Basophil % 0.2 % Nucleated Red Blood Cells % 0.8 Type & Screen 06/06/2019 [facility] Patient Blood A Positive [phone] Type Antibody Screen NEGATIVE Laboratory test 06/06/2019 [facility] Packed Cells SEE RESULTS 14 finding [phone] BELO <SEE NOTE> CBC Auto Diff 05/29/2019 [facility] White Blood 2.5 10^3/uL Low 3.5-10 [phone] Count .8 Red Blood Count 2.65 10^6/uL Low 4.18-5.48 Hemoglobin 8.5 g/dL Low 14.0-18.0 Hematocrit 24 % Low 42-52 Mean Corpuscular Volume 90 fL Normal 80-94 Mean Corpuscular Hemoglobin 32 pg High 27-31 Mean Corpuscular HGB Conc 36 g/dL Normal 31-36 Red Cell Distribution Width 16 % High 10-15 Platelet Count 167 10^3/uL Normal 150-450 Mean Platelet Volume 7.0 fL Low 7.4-10.4 Abs Neutrophils 2.2 10^3/uL Normal 1.5-7.7 Abs Lymphocytes 0.2 10^3/uL Low 1.0-4.8 Abs Monocytes 0.0 10^3/uL Normal 0-0.8 Abs Eosinophils 0.0 10^3/uL Normal 0-0.6 Abs Basophils 0.0 10^3/uL Normal 0-0.2 Abs Nucleated RBC 0.0 10^3/uL Granulocyte % 89.1 % Lymphocyte % 8.2 % Monocyte % 1.9 % Eosinophil % 0.6 % Basophil % 0.2 % Nucleated Red Blood Cells % 0.0 Comp Metabolic 05/29/2019 [facility] Sodium 139 mmol/ L Normal 135-145 Panel [phone] Potassium 4.2 mmol/L Normal 3.5-5.0 Chloride 106 mmol/L Normal 101-111 Co2 Carbon Dioxide 25 mmol/L Normal 22-32 Anion Gap 8 mmol/L Normal 2-11 Glucose 140 mg/dL High 70-100 Blood Urea Nitrogen 18 mg/dL Normal 6-24 Creatinine 0.78 mg/dL Normal 0.67-1.17 BUN/Creatinine Ratio 23.1 High 8-20 Calcium 9.1 mg/dL Normal 8.6-10.3 Total Protein 5.7 g/dL Low 6.4-8.9 Albumin 3.7 g/dL Normal 3.2-5.2 Globulin 2.0 g/dL Normal 2-4 Albumin/Globulin Ratio 1.9 Normal 1-3 Total Bilirubin 0.60 mg/dL Normal 0.2-1.0 Alkaline Phosphatase 60 U/L Normal 34-104 Alt 13 U/L Normal 7-52 Ast 14 U/L Normal 13-39 Egfr Non- 99.6 >60 Egfr 120.5 >60 15 Laboratory test 05/29/2019 [facility] Magnesium 1.9 mg/dL Normal 1.9-2.7 finding [phone] CBC Auto Diff 05/23/2019 [facility] White Blood 6.4 Normal 3.5-10.8 [phone] Count 10^3/uL Red Blood Count 2.32 10^6/uL Low 4.18-5.48 Hemoglobin 7.5 g/dL Low 14.0-18.0 Hematocrit 21 % Low 42-52 Mean Corpuscular Volume 90 fL Normal 80-94 Mean Corpuscular Hemoglobin 32 pg High 27-31 Mean Corpuscular HGB Conc 36 g/dL Normal 31-36 Red Cell Distribution Width 16 % High 10-15 Platelet Count 228 10^3/uL Normal 150-450 Mean Platelet Volume 7.5 fL Normal 7.4-10.4 Abs Neutrophils 5.5 10^3/uL Normal 1.5-7.7 Abs Lymphocytes 0.1 10^3/uL Low 1.0-4.8 Abs Monocytes 0.7 10^3/uL Normal 0-0.8 Abs Eosinophils 0.0 10^3/uL Normal 0-0.6 Abs Basophils 0.0 10^3/uL Normal 0-0.2 Abs Nucleated RBC 0.0 10^3/uL Granulocyte % 86.0 % Lymphocyte % 1.9 % Monocyte % 11.4 % Eosinophil % 0.0 % Basophil % 0.7 % Nucleated Red Blood Cells % 0.1 Type & Screen 05/23/2019 [facility] Patient Blood A Positive [phone] Type Antibody Screen NEGATIVE Laboratory test 05/23/2019 [facility] Packed Cells SEE RESULTS 16 finding [phone] BELO <SEE NOTE> CBC Auto Diff 05/21/2019 [facility] White Blood 3.0 10^3/uL Low 3.5-10 [phone] Count .8 Red Blood Count 2.63 10^6/uL Low 4.18-5.48 Hemoglobin 8.0 g/dL Low 14.0-18.0 Hematocrit 24 % Low 42-52 Mean Corpuscular Volume 90 fL Normal 80-94 Mean Corpuscular Hemoglobin 30 pg Normal 27-31 Mean Corpuscular HGB Conc 34 g/dL Normal 31-36 Red Cell Distribution Width 16 % High 10-15 Platelet Count 186 10^3/uL Normal 150-450 Mean Platelet Volume 7.3 fL Low 7.4-10.4 Abs Neutrophils 2.1 10^3/uL Normal 1.5-7.7 Abs Lymphocytes 0.3 10^3/uL Low 1.0-4.8 Abs Monocytes 0.6 10^3/uL Normal 0-0.8 Abs Eosinophils 0.0 10^3/uL Normal 0-0.6 Abs Basophils 0.0 10^3/uL Normal 0-0.2 Abs Nucleated RBC 0.1 10^3/uL Granulocyte % 69.5 % Lymphocyte % 9.9 % Monocyte % 20.3 % Eosinophil % 0.2 % Basophil % 0.1 % Nucleated Red Blood Cells % 1.6 Laboratory test 05/21/2019 [facility] Magnesium 2.0 mg/dL Normal 1.9-2.7 finding [phone] Comp Metabolic 05/21/2019 [facility] Sodium 139 mmol/ L Normal 135-145 Panel [phone] Potassium 4.2 mmol/L Normal 3.5-5.0 Chloride 109 mmol/L Normal 101-111 Co2 Carbon Dioxide 26 mmol/L Normal 22-32 Anion Gap 4 mmol/L Normal 2-11 Glucose 124 mg/dL High 70-100 Blood Urea Nitrogen 19 mg/dL Normal 6-24 Creatinine 0.96 mg/dL Normal 0.67-1.17 BUN/Creatinine Ratio 19.8 Normal 8-20 Calcium 8.8 mg/dL Normal 8.6-10.3 Total Protein 5.6 g/dL Low 6.4-8.9 Albumin 3.5 g/dL Normal 3.2-5.2 Globulin 2.1 g/dL Normal 2-4 Albumin/Globulin Ratio 1.7 Normal 1-3 Total Bilirubin 0.30 mg/dL Normal 0.2-1.0 Alkaline Phosphatase 55 U/L Normal 34-104 Alt 11 U/L Normal 7-52 Ast 13 U/L Normal 13-39 Egfr Non- 78.4 >60 Egfr 94.8 >60 17 Comp Metabolic 05/16/2019 [facility] Sodium 140 mmol/ L Normal 135-145 Panel [phone] Potassium 4.3 mmol/L Normal 3.5-5.0 Chloride 110 mmol/L Normal 101-111 Co2 Carbon Dioxide 27 mmol/L Normal 22-32 Anion Gap 3 mmol/L Normal 2-11 Glucose 100 mg/dL Normal 70-100 Blood Urea Nitrogen 18 mg/dL Normal 6-24 Creatinine 0.92 mg/dL Normal 0.67-1.17 BUN/Creatinine Ratio 19.6 Normal 8-20 Calcium 8.7 mg/dL Normal 8.6-10.3 Total Protein 5.5 g/dL Low 6.4-8.9 Albumin 3.5 g/dL Normal 3.2-5.2 Globulin 2.0 g/dL Normal 2-4 Albumin/Globulin Ratio 1.8 Normal 1-3 Total Bilirubin 0.30 mg/dL Normal 0.2-1.0 Alkaline Phosphatase 59 U/L Normal 34-104 Alt 11 U/L Normal 7-52 Ast 12 U/L Low 13-39 Egfr Non- 82.3 >60 Egfr 99.6 >60 18 Laboratory test 05/16/2019 [facility] Magnesium 1.9 mg/dL Normal 1.9-2.7 finding [phone] CBC Auto Diff 05/16/2019 [facility] White Blood 2.2 Low 3.5-10.8 [phone] Count 10^3/uL Red Blood Count 2.38 10^6/uL Low 4.18-5.48 Hemoglobin 7.3 g/dL Low 14.0-18.0 Hematocrit 21 % Low 42-52 Mean Corpuscular Volume 87 fL Normal 80-94 Mean Corpuscular Hemoglobin 31 pg Normal 27-31 Mean Corpuscular HGB Conc 35 g/dL Normal 31-36 Red Cell Distribution Width 15 % Normal 10-15 Platelet Count 70 10^3/uL Low 150-450 Mean Platelet Volume 7.3 fL Low 7.4-10.4 Abs Neutrophils 1.3 10^3/uL Low 1.5-7.7 Abs Lymphocytes 0.3 10^3/uL Low 1.0-4.8 Abs Monocytes 0.5 10^3/uL Normal 0-0.8 Abs Eosinophils 0.0 10^3/uL Normal 0-0.6 Abs Basophils 0.0 10^3/uL Normal 0-0.2 Abs Nucleated RBC 0.0 10^3/uL Granulocyte % 59.4 % Lymphocyte % 15.7 % Monocyte % 24.4 % Eosinophil % 0.3 % Basophil % 0.2 % Nucleated Red Blood Cells % 0.2 Type & Screen 05/16/2019 [facility] Patient Blood A Positive [phone] Type Antibody Screen NEGATIVE Laboratory test 05/16/2019 [facility] Packed Cells SEE RESULTS 19 finding [phone] BELO <SEE NOTE> CBC Auto Diff 05/11/2019 [facility] White Blood 0.8 10^3/uL Low 3.5-10 20 [phone] Count .8 Red Blood Count 2.23 10^6/uL Low 4.18-5.48 Hemoglobin 6.8 g/dL Low 14.0-18.0 Hematocrit 19 % Low 42-52 Mean Corpuscular Volume 87 fL Normal 80-94 Mean Corpuscular Hemoglobin 31 pg Normal 27-31 Mean Corpuscular HGB Conc 36 g/dL Normal 31-36 Red Cell Distribution Width 15 % Normal 10-15 Platelet Count 19 10^3/uL Low 150-450 21 Mean Platelet Volume 7.2 fL Low 7.4-10.4 Abs Neutrophils 0.4 10^3/uL Low 1.5-7.7 22 Abs Lymphocytes 0.2 10^3/uL Low 1.0-4.8 Abs Monocytes 0.2 10^3/uL Normal 0-0.8 Abs Eosinophils 0.0 10^3/uL Normal 0-0.6 Abs Basophils 0.0 10^3/uL Normal 0-0.2 Abs Nucleated RBC 0.0 10^3/uL Granulocyte % 43.7 % Lymphocyte % 26.7 % Monocyte % 29.1 % Eosinophil % 0.3 % Basophil % 0.2 % Nucleated Red Blood Cells % 0.4 Comp Metabolic 05/11/2019 [facility] Sodium 138 mmol/ L Normal 135-145 Panel [phone] Potassium 4.3 mmol/L Normal 3.5-5.0 Chloride 107 mmol/L Normal 101-111 Co2 Carbon Dioxide 24 mmol/L Normal 22-32 Anion Gap 7 mmol/L Normal 2-11 Glucose 113 mg/dL High 70-100 Blood Urea Nitrogen 21 mg/dL Normal 6-24 Creatinine 0.99 mg/dL Normal 0.67-1.17 BUN/Creatinine Ratio 21.2 High 8-20 Calcium 8.6 mg/dL Normal 8.6-10.3 Total Protein 5.6 g/dL Low 6.4-8.9 Albumin 3.6 g/dL Normal 3.2-5.2 Globulin 2.0 g/dL Normal 2-4 Albumin/Globulin Ratio 1.8 Normal 1-3 Total Bilirubin 0.40 mg/dL Normal 0.2-1.0 Alkaline Phosphatase 67 U/L Normal 34-104 Alt 12 U/L Normal 7-52 Ast 13 U/L Normal 13-39 Egfr Non- 75.6 >60 Egfr 91.5 >60 23 Laboratory 05/11/2019 [facility] Magnesium 2.0 mg/dL Normal 1.9-2.7 test finding [phone] Type & Screen 05/11/2019 [facility] Patient Blood A Positive [phone] Type Antibody Screen NEGATIVE Laboratory test 05/11/2019 [facility] Packed Cells SEE RESULTS 24 finding [phone] BELO <SEE NOTE> CBC Auto Diff 05/09/2019 [facility] White Blood 0.3 10^3/uL Low 3.5-10 [phone] Count .8 Red Blood Count 1.74 10^6/uL Low 4.18-5.48 Hemoglobin 5.4 g/dL Critical low 14.0-18.0 Hematocrit 15 % Low 42-52 Mean Corpuscular Volume 89 fL Normal 80-94 Mean Corpuscular Hemoglobin 31 pg Normal 27-31 Mean Corpuscular HGB Conc 35 g/dL Normal 31-36 Red Cell Distribution Width 15 % Normal 10-15 Platelet Count 10 10^3/uL Low 150-450 Mean Platelet Volume 7.3 fL Low 7.4-10.4 Abs Neutrophils 0.0 10^3/uL Low 1.5-7.7 Abs Lymphocytes 0.2 10^3/uL Low 1.0-4.8 Abs Monocytes 0.1 10^3/uL Normal 0-0.8 Abs Eosinophils 0.0 10^3/uL Normal 0-0.6 Abs Basophils 0.0 10^3/uL Normal 0-0.2 Granulocyte % 15.6 % Lymphocyte % 57.0 % Monocyte % 24.2 % Eosinophil % 2.6 % Basophil % 0.6 % Abs Nucleated RBC 0.0 10^3/uL Nucleated Red Blood Cells % 0.0 Laboratory test 05/09/2019 [facility] Magnesium 2.2 mg/dL Normal 1.9-2.7 finding [phone] Comp Metabolic 05/09/2019 [facility] Sodium 137 mmol/ L Normal 135-145 Panel [phone] Potassium 4.0 mmol/L Normal 3.5-5.0 Chloride 106 mmol/L Normal 101-111 Co2 Carbon Dioxide 26 mmol/L Normal 22-32 Anion Gap 5 mmol/L Normal 2-11 Glucose 157 mg/dL High 70-100 Blood Urea Nitrogen 22 mg/dL Normal 6-24 Creatinine 0.91 mg/dL Normal 0.67-1.17 BUN/Creatinine Ratio 24.2 High 8-20 Calcium 8.4 mg/dL Low 8.6-10.3 Total Protein 5.7 g/dL Low 6.4-8.9 Albumin 3.5 g/dL Normal 3.2-5.2 Globulin 2.2 g/dL Normal 2-4 Albumin/Globulin Ratio 1.6 Normal 1-3 Total Bilirubin 0.40 mg/dL Normal 0.2-1.0 Alkaline Phosphatase 62 U/L Normal 34-104 Alt 12 U/L Normal 7-52 Ast 11 U/L Low 13-39 Egfr Non- 83.4 >60 Egfr 100.9 >60 25 Transfusion 05/09/2019 [facility] TXRX Unit [id number] Reaction Profile [phone] Number TXRX Prelim Report (SEE NOTE) 27 Transfusion RXN Interpretation (SEE NOTE) 28 Platelet Count 05/09/2019 [facility] Platelet Count 16 10^3/uL Low 150-450 [phone] Mean Platelet Volume 7.0 fL Low 7.4-10.4 Laboratory test 05/09/2019 [facility] Packed Cells SEE RESULTS 29 finding [phone] BELO <SEE NOTE> Pheresis Platelets SEE RESULTS BELO <SEE NOTE> 30 CBC Auto 05/09/2019 [facility] White Blood 0.3 10^3/ uL Low 3.5-10.8 Diff [phone] Count Red Blood Count 1.58 10^6/uL Low 4.18-5.48 Hemoglobin 5.0 g/dL Critical low 14.0-18.0 31 Hematocrit 14 % Low 42-52 Mean Corpuscular Volume 89 fL Normal 80-94 Mean Corpuscular Hemoglobin 32 pg High 27-31 Mean Corpuscular HGB Conc 36 g/dL Normal 31-36 Red Cell Distribution Width 16 % High 10-15 Platelet Count 8 10^3/uL Critical low 150-450 32 Mean Platelet Volume 8.3 fL Normal 7.4-10.4 Abs Neutrophils 0.1 10^3/uL Low 1.5-7.7 Abs Lymphocytes 0.2 10^3/uL Low 1.0-4.8 Abs Monocytes 0.1 10^3/uL Normal 0-0.8 Abs Eosinophils 0.0 10^3/uL Normal 0-0.6 Abs Basophils 0.0 10^3/uL Normal 0-0.2 Abs Nucleated RBC 0.0 10^3/uL Granulocyte % 16.9 % Lymphocyte % 51.2 % Monocyte % 28.1 % Eosinophil % 3.0 % Basophil % 0.8 % Nucleated Red Blood Cells % 1.4 Type & Screen 05/09/2019 [facility] Patient Blood A Positive [phone] Type Antibody Screen NEGATIVE Laboratory test 05/02/2019 [facility] Magnesium 2.0 mg/dL Normal 1.9-2.7 finding [phone] CBC Auto Diff 05/02/2019 [facility] White Blood 3.1 Low 3.5-10.8 [phone] Count 10^3/uL Red Blood Count 2.68 10^6/uL Low 4.18-5.48 Hemoglobin 8.4 g/dL Low 14.0-18.0 Hematocrit 24 % Low 42-52 Mean Corpuscular Volume 88 fL Normal 80-94 Mean Corpuscular Hemoglobin 31 pg Normal 27-31 Mean Corpuscular HGB Conc 36 g/dL Normal 31-36 Red Cell Distribution Width 16 % High 10-15 Platelet Count 133 10^3/uL Low 150-450 Mean Platelet Volume 6.7 fL Low 7.4-10.4 Abs Neutrophils 2.7 10^3/uL Normal 1.5-7.7 Abs Lymphocytes 0.4 10^3/uL Low 1.0-4.8 Abs Monocytes 0.0 10^3/uL Normal 0-0.8 Abs Eosinophils 0.0 10^3/uL Normal 0-0.6 Abs Basophils 0.0 10^3/uL Normal 0-0.2 Abs Nucleated RBC 0.0 10^3/uL Granulocyte % 85.8 % Lymphocyte % 13.2 % Monocyte % 0.5 % Eosinophil % 0.2 % Basophil % 0.3 % Nucleated Red Blood Cells % 0.0 Comp Metabolic 05/02/2019 [facility] Sodium 134 mmol/ L Low 135-145 Panel [phone] Potassium 3.8 mmol/L Normal 3.5-5.0 Chloride 100 mmol/L Low 101-111 Co2 Carbon Dioxide 28 mmol/L Normal 22-32 Anion Gap 6 mmol/L Normal 2-11 Glucose 97 mg/dL Normal 70-100 Blood Urea Nitrogen 31 mg/dL High 6-24 Creatinine 0.86 mg/dL Normal 0.67-1.17 BUN/Creatinine Ratio 36.0 High 8-20 Calcium 9.0 mg/dL Normal 8.6-10.3 Total Protein 6.2 g/dL Low 6.4-8.9 Albumin 3.9 g/dL Normal 3.2-5.2 Globulin 2.3 g/dL Normal 2-4 Albumin/Globulin Ratio 1.7 Normal 1-3 Total Bilirubin 0.80 mg/dL Normal 0.2-1.0 Alkaline Phosphatase 60 U/L Normal 34-104 Alt 14 U/L Normal 7-52 Ast 13 U/L Normal 13-39 Egfr Non- 89.0 >60 Egfr 107.7 >60 33 CBC Auto 04/25/2019 [facility] White Blood 3.2 10^3/ uL Low 3.5-10.8 Diff [phone] Count Red Blood Count 2.80 10^6/uL Low 4.18-5.48 Hemoglobin 8.8 g/dL Low 14.0-18.0 Hematocrit 25 % Low 42-52 Mean Corpuscular Volume 89 fL Normal 80-94 Mean Corpuscular Hemoglobin 31 pg Normal 27-31 Mean Corpuscular HGB Conc 35 g/dL Normal 31-36 Red Cell Distribution Width 15 % Normal 10-15 Platelet Count 92 10^3/uL Low 150-450 Mean Platelet Volume 7.3 fL Low 7.4-10.4 Abs Neutrophils 2.2 10^3/uL Normal 1.5-7.7 Abs Lymphocytes 0.6 10^3/uL Low 1.0-4.8 Abs Monocytes 0.4 10^3/uL Normal 0-0.8 Abs Eosinophils 0.0 10^3/uL Normal 0-0.6 Abs Basophils 0.0 10^3/uL Normal 0-0.2 Abs Nucleated RBC 0.0 10^3/uL Granulocyte % 68.9 % Lymphocyte % 17.3 % Monocyte % 12.7 % Eosinophil % 0.7 % Basophil % 0.4 % Nucleated Red Blood Cells % 0.2 Comp Metabolic 04/25/2019 [facility] Sodium 137 mmol/ L Normal 135-145 Panel [phone] Potassium 3.8 mmol/L Normal 3.5-5.0 Chloride 104 mmol/L Normal 101-111 Co2 Carbon Dioxide 27 mmol/L Normal 22-32 Anion Gap 6 mmol/L Normal 2-11 Glucose 160 mg/dL High 70-100 Blood Urea Nitrogen 21 mg/dL Normal 6-24 Creatinine 1.03 mg/dL Normal 0.67-1.17 BUN/Creatinine Ratio 20.4 High 8-20 Calcium 8.8 mg/dL Normal 8.6-10.3 Total Protein 5.8 g/dL Low 6.4-8.9 Albumin 3.6 g/dL Normal 3.2-5.2 Globulin 2.2 g/dL Normal 2-4 Albumin/Globulin Ratio 1.6 Normal 1-3 Total Bilirubin 0.40 mg/dL Normal 0.2-1.0 Alkaline Phosphatase 62 U/L Normal 34-104 Alt 12 U/L Normal 7-52 Ast 13 U/L Normal 13-39 Egfr Non- 72.3 >60 Egfr 87.4 >60 34 Laboratory test 04/25/2019 [facility] Magnesium 1.7 mg/dL Low 1.9-2.7 finding [phone] Laboratory test 04/18/2019 [facility] Packed Cells SEE RESULTS 35 finding [phone] BELO <SEE NOTE> Erythropoietin 399 mIU/mL Abnormal 2.6 - 18.5 36 Type & Screen 04/18/2019 [facility] Patient Blood A Positive [phone] Type Antibody Screen NEGATIVE Comp Metabolic 04/18/2019 [facility] Sodium 136 mmol/ L Normal 135-145 Panel [phone] Potassium 3.6 mmol/L Normal 3.5-5.0 Chloride 104 mmol/L Normal 101-111 Co2 Carbon Dioxide 25 mmol/L Normal 22-32 Anion Gap 7 mmol/L Normal 2-11 Glucose 104 mg/dL High 70-100 Blood Urea Nitrogen 25 mg/dL High 6-24 Creatinine 1.08 mg/dL Normal 0.67-1.17 BUN/Creatinine Ratio 23.1 High 8-20 Calcium 9.0 mg/dL Normal 8.6-10.3 Total Protein 5.7 g/dL Low 6.4-8.9 Albumin 3.6 g/dL Normal 3.2-5.2 Globulin 2.1 g/dL Normal 2-4 Albumin/Globulin Ratio 1.7 Normal 1-3 Total Bilirubin 0.40 mg/dL Normal 0.2-1.0 Alkaline Phosphatase 60 U/L Normal 34-104 Alt 15 U/L Normal 7-52 Ast 15 U/L Normal 13-39 Egfr Non- 68.4 >60 Egfr 82.8 >60 37 Laboratory test 04/18/2019 [facility] Magnesium 1.9 mg/dL Normal 1.9-2.7 finding [phone] Iron & Iron 04/18/2019 [facility] Iron 146 g/dL Normal 50-212 Binding Capacity [phone] Unsaturated Iron Binding < 227 g/dL Total Iron Binding Capacity 242 g/dL Low 250-450 Transferrin 173 mg/dL Low 203-362 % Iron Saturation 60 % High 15-55 CBC Auto 04/18/2019 [facility] White Blood 0.9 10^3/ uL Low 3.5-10.8 Diff [phone] Count Red Blood Count 2.24 10^6/uL Low 4.18-5.48 Hemoglobin 7.0 g/dL Low 14.0-18.0 Hematocrit 20 % Low 42-52 Mean Corpuscular Volume 88 fL Normal 80-94 Mean Corpuscular Hemoglobin 31 pg Normal 27-31 Mean Corpuscular HGB Conc 35 g/dL Normal 31-36 Red Cell Distribution Width 16 % High 10-15 Platelet Count 27 10^3/uL Low 150-450 Mean Platelet Volume 8.0 fL Normal 7.4-10.4 Abs Neutrophils 0.2 10^3/uL Low 1.5-7.7 Abs Lymphocytes 0.5 10^3/uL Low 1.0-4.8 Abs Monocytes 0.2 10^3/uL Normal 0-0.8 Abs Eosinophils 0.0 10^3/uL Normal 0-0.6 Abs Basophils 0.0 10^3/uL Normal 0-0.2 Abs Nucleated RBC 0.0 10^3/uL Granulocyte % 23.0 % Lymphocyte % 54.1 % Monocyte % 20.7 % Eosinophil % 1.5 % Basophil % 0.7 % Nucleated Red Blood Cells % 0.4 CBC Auto 04/11/2019 [facility] White Blood 3.7 10^3/ uL Normal 3.5-10.8 Diff [phone] Count Red Blood Count 2.82 10^6/uL Low 4.18-5.48 Hemoglobin 8.7 g/dL Low 14.0-18.0 Hematocrit 25 % Low 42-52 Mean Corpuscular Volume 89 fL Normal 80-94 Mean Corpuscular Hemoglobin 31 pg Normal 27-31 Mean Corpuscular HGB Conc 35 g/dL Normal 31-36 Red Cell Distribution Width 16 % High 10-15 Platelet Count 183 10^3/uL Normal 150-450 Mean Platelet Volume 6.6 fL Low 7.4-10.4 Abs Neutrophils 3.0 10^3/uL Normal 1.5-7.7 Abs Lymphocytes 0.6 10^3/uL Low 1.0-4.8 Abs Monocytes 0.0 10^3/uL Normal 0-0.8 Abs Eosinophils 0.0 10^3/uL Normal 0-0.6 Abs Basophils 0.0 10^3/uL Normal 0-0.2 Abs Nucleated RBC 0.0 10^3/uL Granulocyte % 81.0 % Lymphocyte % 17.6 % Monocyte % 0.8 % Eosinophil % 0.1 % Basophil % 0.5 % Nucleated Red Blood Cells % 0.0 Comp Metabolic 04/11/2019 [facility] Sodium 134 mmol/ L Low 135-145 Panel [phone] Potassium 4.1 mmol/L Normal 3.5-5.0 Chloride 101 mmol/L Normal 101-111 Co2 Carbon Dioxide 28 mmol/L Normal 22-32 Anion Gap 5 mmol/L Normal 2-11 Glucose 106 mg/dL High 70-100 Blood Urea Nitrogen 25 mg/dL High 6-24 Creatinine 0.80 mg/dL Normal 0.67-1.17 BUN/Creatinine Ratio 31.3 High 8-20 Calcium 9.0 mg/dL Normal 8.6-10.3 Total Protein 5.9 g/dL Low 6.4-8.9 Albumin 3.9 g/dL Normal 3.2-5.2 Globulin 2.0 g/dL Normal 2-4 Albumin/Globulin Ratio 2.0 Normal 1-3 Total Bilirubin 0.80 mg/dL Normal 0.2-1.0 Alkaline Phosphatase 59 U/L Normal 34-104 Alt 15 U/L Normal 7-52 Ast 16 U/L Normal 13-39 Egfr Non- 96.7 >60 Egfr 117.0 >60 38 Laboratory test 04/11/2019 [facility] Magnesium 1.8 mg/dL Low 1.9-2.7 finding [phone] Comp Metabolic 04/04/2019 [facility] Sodium 136 mmol/ L Normal 135-145 Panel [phone] Potassium 4.1 mmol/L Normal 3.5-5.0 Chloride 104 mmol/L Normal 101-111 Co2 Carbon Dioxide 26 mmol/L Normal 22-32 Anion Gap 6 mmol/L Normal 2-11 Glucose 93 mg/dL Normal 70-100 Blood Urea Nitrogen 24 mg/dL Normal 6-24 Creatinine 0.99 mg/dL Normal 0.67-1.17 BUN/Creatinine Ratio 24.2 High 8-20 Calcium 8.7 mg/dL Normal 8.6-10.3 Total Protein 5.9 g/dL Low 6.4-8.9 Albumin 3.7 g/dL Normal 3.2-5.2 Globulin 2.2 g/dL Normal 2-4 Albumin/Globulin Ratio 1.7 Normal 1-3 Total Bilirubin 0.30 mg/dL Normal 0.2-1.0 Alkaline Phosphatase 61 U/L Normal 34-104 Alt 16 U/L Normal 7-52 Ast 16 U/L Normal 13-39 Egfr Non- 75.6 >60 Egfr 91.5 >60 39 Laboratory test 04/04/2019 [facility] Magnesium 1.9 mg/dL Normal 1.9-2.7 finding [phone] CBC Auto Diff 04/04/2019 [facility] White Blood 5.8 Normal 3.5-10.8 [phone] Count 10^3/uL Red Blood Count 3.08 10^6/uL Low 4.18-5.48 Hemoglobin 9.5 g/dL Low 14.0-18.0 Hematocrit 28 % Low 42-52 Mean Corpuscular Volume 90 fL Normal 80-94 Mean Corpuscular Hemoglobin 31 pg Normal 27-31 Mean Corpuscular HGB Conc 34 g/dL Normal 31-36 Red Cell Distribution Width 16 % High 10-15 Platelet Count 267 10^3/uL Normal 150-450 Mean Platelet Volume 6.7 fL Low 7.4-10.4 Abs Neutrophils 3.5 10^3/uL Normal 1.5-7.7 Abs Lymphocytes 1.3 10^3/uL Normal 1.0-4.8 Abs Monocytes 1.0 10^3/uL High 0-0.8 Abs Eosinophils 0.0 10^3/uL Normal 0-0.6 Abs Basophils 0.0 10^3/uL Normal 0-0.2 Abs Nucleated RBC 0.0 10^3/uL Granulocyte % 60.4 % Lymphocyte % 22.5 % Monocyte % 16.4 % Eosinophil % 0.3 % Basophil % 0.4 % Nucleated Red Blood Cells % 0.3 Comp Metabolic 03/28/2019 [facility] Sodium 135 mmol/ L Normal 135-145 Panel [phone] Potassium 3.5 mmol/L Normal 3.5-5.0 Chloride 99 mmol/L Low 101-111 Co2 Carbon Dioxide 30 mmol/L Normal 22-32 Anion Gap 6 mmol/L Normal 2-11 Glucose 115 mg/dL High 70-100 Blood Urea Nitrogen 22 mg/dL Normal 6-24 Creatinine 1.02 mg/dL Normal 0.67-1.17 BUN/Creatinine Ratio 21.6 High 8-20 Calcium 9.5 mg/dL Normal 8.6-10.3 Total Protein 6.3 g/dL Low 6.4-8.9 Albumin 3.8 g/dL Normal 3.2-5.2 Globulin 2.5 g/dL Normal 2-4 Albumin/Globulin Ratio 1.5 Normal 1-3 Total Bilirubin 0.30 mg/dL Normal 0.2-1.0 Alkaline Phosphatase 67 U/L Normal 34-104 Alt 21 U/L Normal 7-52 Ast 18 U/L Normal 13-39 Egfr Non- 73.1 >60 Egfr 88.4 >60 40 Laboratory test 03/28/2019 [facility] Magnesium 1.6 mg/dL Low 1.9-2.7 finding [phone] CBC Auto Diff 03/28/2019 [facility] White Blood 2.0 Low 3.5-10.8 [phone] Count 10^3/uL Red Blood Count 3.30 10^6/uL Low 4.18-5.48 Hemoglobin 10.2 g/dL Low 14.0-18.0 Hematocrit 29 % Low 42-52 Mean Corpuscular Volume 87 fL Normal 80-94 Mean Corpuscular Hemoglobin 31 pg Normal 27-31 Mean Corpuscular HGB Conc 36 g/dL Normal 31-36 Red Cell Distribution Width 14 % Normal 10-15 Platelet Count 112 10^3/uL Low 150-450 Mean Platelet Volume 7.1 fL Low 7.4-10.4 Abs Neutrophils 0.3 10^3/uL Low 1.5-7.7 Abs Lymphocytes 1.4 10^3/uL Normal 1.0-4.8 Abs Monocytes 0.3 10^3/uL Normal 0-0.8 Abs Eosinophils 0.0 10^3/uL Normal 0-0.6 Abs Basophils 0.0 10^3/uL Normal 0-0.2 Abs Nucleated RBC 0.0 10^3/uL Granulocyte % 13.3 % Lymphocyte % 71.5 % Monocyte % 13.7 % Eosinophil % 0.9 % Basophil % 0.6 % Nucleated Red Blood Cells % 0.1 CBC Auto 03/23/2019 [facility] White Blood 4.6 10^3/ uL Normal 3.5-10.8 Diff [phone] Count Red Blood Count 3.58 10^6/uL Low 4.18-5.48 Hemoglobin 11.2 g/dL Low 14.0-18.0 Hematocrit 31 % Low 42-52 Mean Corpuscular Volume 87 fL Normal 80-94 Mean Corpuscular Hemoglobin 31 pg Normal 27-31 Mean Corpuscular HGB Conc 36 g/dL Normal 31-36 Red Cell Distribution Width 15 % Normal 10-15 Platelet Count 150 10^3/uL Normal 150-450 Mean Platelet Volume 7.1 fL Low 7.4-10.4 Abs Neutrophils 3.8 10^3/uL Normal 1.5-7.7 Abs Lymphocytes 0.8 10^3/uL Low 1.0-4.8 Abs Monocytes 0.1 10^3/uL Normal 0-0.8 Abs Eosinophils 0.0 10^3/uL Normal 0-0.6 Abs Basophils 0.0 10^3/uL Normal 0-0.2 Abs Nucleated RBC 0.0 10^3/uL Granulocyte % 81.5 % Lymphocyte % 16.8 % Monocyte % 1.5 % Eosinophil % 0.1 % Basophil % 0.1 % Nucleated Red Blood Cells % 0.0 Comp Metabolic 03/23/2019 [facility] Sodium 125 mmol/ L Low 135-145 Panel [phone] Potassium 4.2 mmol/L Normal 3.5-5.0 Chloride 95 mmol/L Low 101-111 Co2 Carbon Dioxide 21 mmol/L Low 22-32 Anion Gap 9 mmol/L Normal 2-11 Glucose 158 mg/dL High 70-100 Blood Urea Nitrogen 50 mg/dL High 6-24 Creatinine 1.93 mg/dL High 0.67-1.17 BUN/Creatinine Ratio 25.9 High 8-20 Calcium 8.2 mg/dL Low 8.6-10.3 Total Protein 5.8 g/dL Low 6.4-8.9 Albumin 3.7 g/dL Normal 3.2-5.2 Globulin 2.1 g/dL Normal 2-4 Albumin/Globulin Ratio 1.8 Normal 1-3 Total Bilirubin 0.50 mg/dL Normal 0.2-1.0 Alkaline Phosphatase 68 U/L Normal 34-104 Alt 27 U/L Normal 7-52 Ast 19 U/L Normal 13-39 Egfr Non- 35.0 >60 Egfr 42.4 >60 41 Laboratory test 03/23/2019 [facility] Magnesium 1.8 mg/dL Low 1.9-2.7 finding [phone] Comp Metabolic 03/21/2019 [facility] Sodium 129 mmol/ L Low 135-145 Panel [phone] Potassium 4.1 mmol/L Normal 3.5-5.0 Chloride 95 mmol/L Low 101-111 Co2 Carbon Dioxide 25 mmol/L Normal 22-32 Anion Gap 9 mmol/L Normal 2-11 Glucose 154 mg/dL High 70-100 Blood Urea Nitrogen 45 mg/dL High 6-24 Creatinine 1.64 mg/dL High 0.67-1.17 BUN/Creatinine Ratio 27.4 High 8-20 Calcium 8.7 mg/dL Normal 8.6-10.3 Total Protein 6.6 g/dL Normal 6.4-8.9 Albumin 3.9 g/dL Normal 3.2-5.2 Globulin 2.7 g/dL Normal 2-4 Albumin/Globulin Ratio 1.4 Normal 1-3 Total Bilirubin 0.80 mg/dL Normal 0.2-1.0 Alkaline Phosphatase 68 U/L Normal 34-104 Alt 43 U/L Normal 7-52 Ast 22 U/L Normal 13-39 Egfr Non- 42.2 >60 Egfr 51.1 >60 42 CBC Auto 03/21/2019 [facility] White Blood 9.3 10^3/ uL Normal 3.5-10.8 Diff [phone] Count Red Blood Count 4.23 10^6/uL Normal 4.18-5.48 Hemoglobin 13.0 g/dL Low 14.0-18.0 Hematocrit 37 % Low 42-52 Mean Corpuscular Volume 87 fL Normal 80-94 Mean Corpuscular Hemoglobin 31 pg Normal 27-31 Mean Corpuscular HGB Conc 35 g/dL Normal 31-36 Red Cell Distribution Width 15 % Normal 10-15 Platelet Count 269 10^3/uL Normal 150-450 Mean Platelet Volume 7.1 fL Low 7.4-10.4 Abs Neutrophils 7.8 10^3/uL High 1.5-7.7 Abs Lymphocytes 1.4 10^3/uL Normal 1.0-4.8 Abs Monocytes 0.0 10^3/uL Normal 0-0.8 Abs Eosinophils 0.0 10^3/uL Normal 0-0.6 Abs Basophils 0.0 10^3/uL Normal 0-0.2 Abs Nucleated RBC 0.0 10^3/uL Granulocyte % 84.0 % Lymphocyte % 15.4 % Monocyte % 0.3 % Eosinophil % 0.1 % Basophil % 0.2 % Nucleated Red Blood Cells % 0.0 Laboratory test 03/21/2019 [facility] Magnesium 1.9 mg/dL Normal 1.9-2.7 finding [phone] Laboratory test 03/14/2019 [facility] Magnesium 1.9 mg/dL Normal 1.9-2.7 finding [phone] Comp Metabolic 03/14/2019 [facility] Sodium 139 mmol/ L Normal 135-145 Panel [phone] Potassium 3.8 mmol/L Normal 3.5-5.0 Chloride 104 mmol/L Normal 101-111 Co2 Carbon Dioxide 25 mmol/L Normal 22-32 Anion Gap 10 mmol/L Normal 2-11 Glucose 120 mg/dL High 70-100 Blood Urea Nitrogen 21 mg/dL Normal 6-24 Creatinine 1.08 mg/dL Normal 0.67-1.17 BUN/Creatinine Ratio 19.4 Normal 8-20 Calcium 9.1 mg/dL Normal 8.6-10.3 Total Protein 6.3 g/dL Low 6.4-8.9 Albumin 3.7 g/dL Normal 3.2-5.2 Globulin 2.6 g/dL Normal 2-4 Albumin/Globulin Ratio 1.4 Normal 1-3 Total Bilirubin 0.40 mg/dL Normal 0.2-1.0 Alkaline Phosphatase 68 U/L Normal 34-104 Alt 17 U/L Normal 7-52 Ast 18 U/L Normal 13-39 Egfr Non- 68.4 >60 Egfr 82.8 >60 43 CBC Auto 03/12/2019 [facility] White Blood 6.4 10^3/ uL Normal 3.5-10.8 Diff [phone] Count Red Blood Count 3.78 10^6/uL Low 4.18-5.48 Hemoglobin 11.8 g/dL Low 14.0-18.0 Hematocrit 33 % Low 42-52 Mean Corpuscular Volume 88 fL Normal 80-94 Mean Corpuscular Hemoglobin 31 pg Normal 27-31 Mean Corpuscular HGB Conc 36 g/dL Normal 31-36 Red Cell Distribution Width 15 % Normal 10-15 Platelet Count 289 10^3/uL Normal 150-450 Mean Platelet Volume 6.7 fL Low 7.4-10.4 Abs Neutrophils 3.9 10^3/uL Normal 1.5-7.7 Abs Lymphocytes 1.4 10^3/uL Normal 1.0-4.8 Abs Monocytes 1.0 10^3/uL High 0-0.8 Abs Eosinophils 0.0 10^3/uL Normal 0-0.6 Abs Basophils 0.0 10^3/uL Normal 0-0.2 Abs Nucleated RBC 0.0 10^3/uL Granulocyte % 61.1 % Lymphocyte % 22.2 % Monocyte % 15.5 % Eosinophil % 0.6 % Basophil % 0.6 % Nucleated Red Blood Cells % 0.1 Manual 03/12/2019 [facility] Immature 14.0 % High 0 -9 Differential [phone] Granulocytes Neutrophil % 43.0 % Band % 6.0 % Normal 0-8 Lymphocytes % 25.0 % Monocytes % 18.0 % Metamyelocytes % 4.0 % High 0-2 Myelocytes % 4.0 % High 0-1 RBC Morphology Normal Normal CBC Auto 03/08/2019 [facility] White Blood 1.7 10^3/ uL Low 3.5-10.8 Diff [phone] Count Red Blood Count 3.54 10^6/uL Low 4.18-5.48 Hemoglobin 10.9 g/dL Low 14.0-18.0 Hematocrit 31 % Low 42-52 Mean Corpuscular Volume 89 fL Normal 80-94 Mean Corpuscular Hemoglobin 31 pg Normal 27-31 Mean Corpuscular HGB Conc 35 g/dL Normal 31-36 Red Cell Distribution Width 15 % Normal 10-15 Platelet Count 153 10^3/uL Normal 150-450 Mean Platelet Volume 6.9 fL Low 7.4-10.4 Abs Neutrophils 0.3 10^3/uL Low 1.5-7.7 Abs Lymphocytes 0.8 10^3/uL Low 1.0-4.8 Abs Monocytes 0.5 10^3/uL Normal 0-0.8 Abs Eosinophils 0.0 10^3/uL Normal 0-0.6 Abs Basophils 0.0 10^3/uL Normal 0-0.2 Abs Nucleated RBC 0.0 10^3/uL Granulocyte % 18.5 % Lymphocyte % 47.4 % Monocyte % 31.4 % Eosinophil % 1.8 % Basophil % 0.9 % Nucleated Red Blood Cells % 0.1 Laboratory test 03/08/2019 [facility] Lactic Acid 0.9 mmol/L Normal 0.5-2.0 44 finding [phone] Comp Metabolic 03/08/2019 [facility] Sodium 134 mmol/ L Low 135-145 Panel [phone] Potassium 3.8 mmol/L Normal 3.5-5.0 Chloride 102 mmol/L Normal 101-111 Co2 Carbon Dioxide 27 mmol/L Normal 22-32 Anion Gap 5 mmol/L Normal 2-11 Glucose 137 mg/dL High 70-100 Blood Urea Nitrogen 18 mg/dL Normal 6-24 Creatinine 1.01 mg/dL Normal 0.67-1.17 BUN/Creatinine Ratio 17.8 Normal 8-20 Calcium 8.5 mg/dL Low 8.6-10.3 Total Protein 5.9 g/dL Low 6.4-8.9 Albumin 3.6 g/dL Normal 3.2-5.2 Globulin 2.3 g/dL Normal 2-4 Albumin/Globulin Ratio 1.6 Normal 1-3 Total Bilirubin 0.40 mg/dL Normal 0.2-1.0 Alkaline Phosphatase 68 U/L Normal 34-104 Alt 21 U/L Normal 7-52 Ast 18 U/L Normal 13-39 Egfr Non- 73.9 >60 Egfr 89.4 >60 45 Urinalysis Profile 03/08/2019 [facility] Urine Color Yellow [phone] Urine Appearance Clear Urine Specific [place] 1.012 Normal 1.010-1.030 Urine pH 7.0 Normal 5-9 Urine Urobilinogen Negative Negative Urine Ketones Negative Negative Urine Protein Negative Negative Urine Leukocytes Trace Abnormal Negative Urine Blood 2+ Abnormal Negative Urine Nitrite Negative Negative Urine Bilirubin Negative Negative Urine Glucose Negative Negative Urine White Blood Cell 1+(6-10/hpf) Abnormal Absent Urine Red Blood Cell 2+(6-10/hpf) Abnormal Absent Urine Bacteria Absent Absent Urine Culture And 03/08/2019 [facility] Urine SEE RESULT 46 Sensitivities [phone] Culture BELOW Laboratory test 03/08/2019 [facility] Blood SEE RESULT 47 finding [phone] Culture BELOW CBC Auto Diff 03/07/2019 [facility] White Blood 1.5 10^3/uL Low 3.5-0 [phone] Count 0.8 Red Blood Count 3.70 10^6/uL Low 4.18-5.48 Hemoglobin 11.5 g/dL Low 14.0-18.0 Hematocrit 33 % Low 42-52 Mean Corpuscular Volume 88 fL Normal 80-94 Mean Corpuscular Hemoglobin 31 pg Normal 27-31 Mean Corpuscular HGB Conc 35 g/dL Normal 31-36 Red Cell Distribution Width 14 % Normal 10-15 Platelet Count 136 10^3/uL Low 150-450 Mean Platelet Volume 6.9 fL Low 7.4-10.4 Abs Neutrophils 0.3 10^3/uL Low 1.5-7.7 Abs Lymphocytes 0.8 10^3/uL Low 1.0-4.8 Abs Monocytes 0.4 10^3/uL Normal 0-0.8 Abs Eosinophils 0.0 10^3/uL Normal 0-0.6 Abs Basophils 0.0 10^3/uL Normal 0-0.2 Abs Nucleated RBC 0.0 10^3/uL Granulocyte % 18.9 % Lymphocyte % 54.0 % Monocyte % 23.0 % Eosinophil % 2.5 % Basophil % 1.6 % Nucleated Red Blood Cells % 0.2 Comp Metabolic 03/07/2019 [facility] Sodium 138 mmol/ L Normal 135-145 Panel [phone] Potassium 4.1 mmol/L Normal 3.5-5.0 Chloride 106 mmol/L Normal 101-111 Co2 Carbon Dioxide 31 mmol/L Normal 22-32 Anion Gap 1 mmol/L Low 2-11 Glucose 98 mg/dL Normal 70-100 Blood Urea Nitrogen 19 mg/dL Normal 6-24 Creatinine 1.05 mg/dL Normal 0.67-1.17 BUN/Creatinine Ratio 18.1 Normal 8-20 Calcium 8.7 mg/dL Normal 8.6-10.3 Total Protein 6.1 g/dL Low 6.4-8.9 Albumin 3.7 g/dL Normal 3.2-5.2 Globulin 2.4 g/dL Normal 2-4 Albumin/Globulin Ratio 1.5 Normal 1-3 Total Bilirubin 0.40 mg/dL Normal 0.2-1.0 Alkaline Phosphatase 70 U/L Normal 34-104 Alt 24 U/L Normal 7-52 Ast 21 U/L Normal 13-39 Egfr Non- 70.7 >60 Egfr 85.5 >60 48 Laboratory test 03/07/2019 [facility] Magnesium 2.1 mg/dL Normal 1.9-2.7 finding [phone] Pathologist Review (SEE NOTE) 49 Urine Culture And 03/01/2019 [facility] Urine Culture SEE RESULT 50 Sensitivities [phone] BELOW Urinalysis Profile 03/01/2019 [facility] Urine Color Yellow [phone] Urine Appearance Cloudy Urine Specific [place] 1.016 Normal 1.010-1.030 Urine pH 5.0 Normal 5-9 Urine Urobilinogen Negative Negative Urine Ketones Negative Negative Urine Protein Negative Negative Urine Leukocytes 3+ Abnormal Negative Urine Blood 2+ Abnormal Negative Urine Nitrite Negative Negative Urine Bilirubin Negative Negative Urine Glucose Negative Negative Urine White Blood Cell 3+(>20/hpf) Abnormal Absent Urine Red Blood Cell 3+(>10/hpf) Abnormal Absent Urine Bacteria Absent Absent Urine Squamous Epithelial Cell Present Abnormal Absent Comp Metabolic 02/28/2019 [facility] Sodium 133 mmol/ L Low 135-145 Panel [phone] Potassium 3.8 mmol/L Normal 3.5-5.0 Chloride 100 mmol/L Low 101-111 Co2 Carbon Dioxide 28 mmol/L Normal 22-32 Anion Gap 5 mmol/L Normal 2-11 Glucose 115 mg/dL High 70-100 Blood Urea Nitrogen 38 mg/dL High 6-24 Creatinine 1.17 mg/dL Normal 0.67-1.17 BUN/Creatinine Ratio 32.5 High 8-20 Calcium 9.1 mg/dL Normal 8.6-10.3 Total Protein 6.4 g/dL Normal 6.4-8.9 Albumin 3.8 g/dL Normal 3.2-5.2 Globulin 2.6 g/dL Normal 2-4 Albumin/Globulin Ratio 1.5 Normal 1-3 Total Bilirubin 0.90 mg/dL Normal 0.2-1.0 Alkaline Phosphatase 68 U/L Normal 34-104 Alt 19 U/L Normal 7-52 Ast 18 U/L Normal 13-39 Egfr Non- 62.4 >60 Egfr 75.5 >60 51 Laboratory test 02/28/2019 [facility] Magnesium 2.0 mg/dL Normal 1.9-2.7 finding [phone] CBC Auto Diff 02/28/2019 [facility] White Blood 7.1 Normal 3.5-10.8 [phone] Count 10^3/uL Red Blood Count 4.44 10^6/uL Normal 4.18-5.48 Hemoglobin 13.4 g/dL Low 14.0-18.0 Hematocrit 40 % Low 42-52 Mean Corpuscular Volume 89 fL Normal 80-94 Mean Corpuscular Hemoglobin 30 pg Normal 27-31 Mean Corpuscular HGB Conc 34 g/dL Normal 31-36 Red Cell Distribution Width 14 % Normal 10-15 Platelet Count 185 10^3/uL Normal 150-450 Mean Platelet Volume 7.0 fL Low 7.4-10.4 Abs Neutrophils 5.8 10^3/uL Normal 1.5-7.7 Abs Lymphocytes 1.2 10^3/uL Normal 1.0-4.8 Abs Monocytes 0.0 10^3/uL Normal 0-0.8 Abs Eosinophils 0.1 10^3/uL Normal 0-0.6 Abs Basophils 0.1 10^3/uL Normal 0-0.2 Abs Nucleated RBC 0.0 10^3/uL Granulocyte % 80.8 % Lymphocyte % 16.5 % Monocyte % 0.5 % Eosinophil % 1.3 % Basophil % 0.9 % Nucleated Red Blood Cells % 0.0 Urinalysis Profile 02/22/2019 [facility] Urine Color Yellow [phone] Urine Appearance Cloudy Urine Specific [place] 1.015 Normal 1.010-1.030 Urine pH 6.0 Normal 5-9 Urine Urobilinogen Negative Negative Urine Ketones Negative Negative Urine Protein Negative Negative Urine Leukocytes 2+ Abnormal Negative Urine Blood 2+ Abnormal Negative Urine Nitrite Negative Negative Urine Bilirubin Negative Negative Urine Glucose Negative Negative Urine White Blood Cell 3+(>20/hpf) Abnormal Absent Urine Red Blood Cell 3+(>10/hpf) Abnormal Absent Urine Bacteria 1+ Abnormal Absent Urine Squamous Epithelial Cell Present Abnormal Absent Urine Hyaline Casts Present Abnormal Absent Urine Culture And 02/22/2019 [facility] Urine SEE RESULT 52 Sensitivities [phone] Culture BELOW CBC Auto Diff 02/21/2019 [facility] White Blood 13.0 High 3.5-9 [phone] Count 10^3/uL 0.8 Red Blood Count 4.20 10^6/uL Normal 4.18-5.48 Hemoglobin 12.6 g/dL Low 14.0-18.0 Hematocrit 38 % Low 42-52 Mean Corpuscular Volume 90 fL Normal 80-94 Mean Corpuscular Hemoglobin 30 pg Normal 27-31 Mean Corpuscular HGB Conc 33 g/dL Normal 31-36 Red Cell Distribution Width 15 % Normal 10-15 Platelet Count 233 10^3/uL Normal 150-450 Mean Platelet Volume 7.7 fL Normal 7.4-10.4 Abs Neutrophils 10.1 10^3/uL High 1.5-7.7 Abs Lymphocytes 1.9 10^3/uL Normal 1.0-4.8 Abs Monocytes 0.9 10^3/uL High 0-0.8 Abs Eosinophils 0.0 10^3/uL Normal 0-0.6 Abs Basophils 0.1 10^3/uL Normal 0-0.2 Abs Nucleated RBC 0.0 10^3/uL Granulocyte % 77.7 % Lymphocyte % 14.4 % Monocyte % 7.2 % Eosinophil % 0.3 % Basophil % 0.4 % Nucleated Red Blood Cells % 0.1 Comp Metabolic 02/21/2019 [facility] Sodium 137 mmol/ L Normal 135-145 Panel [phone] Potassium 3.9 mmol/L Normal 3.5-5.0 Chloride 103 mmol/L Normal 101-111 Co2 Carbon Dioxide 29 mmol/L Normal 22-32 Anion Gap 5 mmol/L Normal 2-11 Glucose 90 mg/dL Normal 70-100 Blood Urea Nitrogen 23 mg/dL Normal 6-24 Creatinine 0.79 mg/dL Normal 0.67-1.17 BUN/Creatinine Ratio 29.1 High 8-20 Calcium 9.0 mg/dL Normal 8.6-10.3 Total Protein 6.5 g/dL Normal 6.4-8.9 Albumin 4.0 g/dL Normal 3.2-5.2 Globulin 2.5 g/dL Normal 2-4 Albumin/Globulin Ratio 1.6 Normal 1-3 Total Bilirubin 0.60 mg/dL Normal 0.2-1.0 Alkaline Phosphatase 72 U/L Normal 34-104 Alt 20 U/L Normal 7-52 Ast 22 U/L Normal 13-39 Egfr Non- 98.1 >60 Egfr 118.7 >60 53 Laboratory test 02/21/2019 [facility] Magnesium 2.2 mg/dL Normal 1.9-2.7 finding [phone] PSA Screening 0.610 ng/mL Normal 0-4.000 1 Project Controls Scheduler: [id number] 2 Because ethnic data is not always readily available, this report includes an eGFR for both -Americans and non- Americans. The National Kidney Disease Education Program (NKDEP) does not endorse the use of the MDRD equation for patients that are not between the ages of 18 and 70, are , have extremes of body size, muscle mass, or nutritional status, or are non- or non-. According to the National Kidney Foundation, irrespective of diagnosis, the stage of the disease is based on the level of kidney function: Stage Description GFR(mL/min/1.73 m(2)) 1 Kidney damage with normal or decreased GFR 90 2 Kidney damage with mild decrease in GFR 60-89 3 Moderate decrease in GFR 30-59 4 Severe decrease in GFR 15-29 5 Kidney failure <15 (or dialysis) 3 Moderate anemia with mild macrocytosis and mild thrombocytopenia. No blasts or evidence of hemolysis identified. Additional studies as clinically warranted. Reviewed by Dr. Massey 4 Because ethnic data is not always readily available, this report includes an eGFR for both -Americans and non- Americans. The National Kidney Disease Education Program (NKDEP) does not endorse the use of the MDRD equation for patients that are not between the ages of 18 and 70, are , have extremes of body size, muscle mass, or nutritional status, or are non- or non-. According to the National Kidney Foundation, irrespective of diagnosis, the stage of the disease is based on the level of kidney function: Stage Description GFR(mL/min/1.73 m(2)) 1 Kidney damage with normal or decreased GFR 90 2 Kidney damage with mild decrease in GFR 60-89 3 Moderate decrease in GFR 30-59 4 Severe decrease in GFR 15-29 5 Kidney failure <15 (or dialysis) 5 Because ethnic data is not always readily available, this report includes an eGFR for both -Americans and non- Americans. The National Kidney Disease Education Program (NKDEP) does not endorse the use of the MDRD equation for patients that are not between the ages of 18 and 70, are , have extremes of body size, muscle mass, or nutritional status, or are non- or non-. According to the National Kidney Foundation, irrespective of diagnosis, the stage of the disease is based on the level of kidney function: Stage Description GFR(mL/min/1.73 m(2)) 1 Kidney damage with normal or decreased GFR 90 2 Kidney damage with mild decrease in GFR 60-89 3 Moderate decrease in GFR 30-59 4 Severe decrease in GFR 15-29 5 Kidney failure <15 (or dialysis) 6 SEE RESULTS BELOW [id number] [facility] TRANSFUSED 06/26/19 1153 7 Because ethnic data is not always readily available, this report includes an eGFR for both -Americans and non- Americans. The National Kidney Disease Education Program (NKDEP) does not endorse the use of the MDRD equation for patients that are not between the ages of 18 and 70, are , have extremes of body size, muscle mass, or nutritional status, or are non- or non-. According to the National Kidney Foundation, irrespective of diagnosis, the stage of the disease is based on the level of kidney function: Stage Description GFR(mL/min/1.73 m(2)) 1 Kidney damage with normal or decreased GFR 90 2 Kidney damage with mild decrease in GFR 60-89 3 Moderate decrease in GFR 30-59 4 Severe decrease in GFR 15-29 5 Kidney failure <15 (or dialysis) 8 Consistent with Previous Results Reported on 06/20/19 9 Because ethnic data is not always readily available, this report includes an eGFR for both -Americans and non- Americans. The National Kidney Disease Education Program (NKDEP) does not endorse the use of the MDRD equation for patients that are not between the ages of 18 and 70, are , have extremes of body size, muscle mass, or nutritional status, or are non- or non-. According to the National Kidney Foundation, irrespective of diagnosis, the stage of the disease is based on the level of kidney function: Stage Description GFR(mL/min/1.73 m(2)) 1 Kidney damage with normal or decreased GFR 90 2 Kidney damage with mild decrease in GFR 60-89 3 Moderate decrease in GFR 30-59 4 Severe decrease in GFR 15-29 5 Kidney failure <15 (or dialysis) 10 SEE RESULTS BELOW [id number] AP TRANSFUSED 06/20/19 1406 11 SEE RESULTS BELOW [id number] AP TRANSFUSED 06/11/19 1325 12 Because ethnic data is not always readily available, this report includes an eGFR for both -Americans and non- Americans. The National Kidney Disease Education Program (NKDEP) does not endorse the use of the MDRD equation for patients that are not between the ages of 18 and 70, are , have extremes of body size, muscle mass, or nutritional status, or are non- or non-. According to the National Kidney Foundation, irrespective of diagnosis, the stage of the disease is based on the level of kidney function: Stage Description GFR(mL/min/1.73 m(2)) 1 Kidney damage with normal or decreased GFR 90 2 Kidney damage with mild decrease in GFR 60-89 3 Moderate decrease in GFR 30-59 4 Severe decrease in GFR 15-29 5 Kidney failure <15 (or dialysis) 13 Because ethnic data is not always readily available, this report includes an eGFR for both -Americans and non- Americans. The National Kidney Disease Education Program (NKDEP) does not endorse the use of the MDRD equation for patients that are not between the ages of 18 and 70, are , have extremes of body size, muscle mass, or nutritional status, or are non- or non-. According to the National Kidney Foundation, irrespective of diagnosis, the stage of the disease is based on the level of kidney function: Stage Description GFR(mL/min/1.73 m(2)) 1 Kidney damage with normal or decreased GFR 90 2 Kidney damage with mild decrease in GFR 60-89 3 Moderate decrease in GFR 30-59 4 Severe decrease in GFR 15-29 5 Kidney failure <15 (or dialysis) 14 SEE RESULTS BELOW [id number] [facility] TRANSFUSED 06/06/19 1458 15 Because ethnic data is not always readily available, this report includes an eGFR for both -Americans and non- Americans. The National Kidney Disease Education Program (NKDEP) does not endorse the use of the MDRD equation for patients that are not between the ages of 18 and 70, are , have extremes of body size, muscle mass, or nutritional status, or are non- or non-. According to the National Kidney Foundation, irrespective of diagnosis, the stage of the disease is based on the level of kidney function: Stage Description GFR(mL/min/1.73 m(2)) 1 Kidney damage with normal or decreased GFR 90 2 Kidney damage with mild decrease in GFR 60-89 3 Moderate decrease in GFR 30-59 4 Severe decrease in GFR 15-29 5 Kidney failure <15 (or dialysis) 16 SEE RESULTS BELOW [id number] [facility] TRANSFUSED 05/23/19 1450 17 Because ethnic data is not always readily available, this report includes an eGFR for both -Americans and non- Americans. The National Kidney Disease Education Program (NKDEP) does not endorse the use of the MDRD equation for patients that are not between the ages of 18 and 70, are , have extremes of body size, muscle mass, or nutritional status, or are non- or non-. According to the National Kidney Foundation, irrespective of diagnosis, the stage of the disease is based on the level of kidney function: Stage Description GFR(mL/min/1.73 m(2)) 1 Kidney damage with normal or decreased GFR 90 2 Kidney damage with mild decrease in GFR 60-89 3 Moderate decrease in GFR 30-59 4 Severe decrease in GFR 15-29 5 Kidney failure <15 (or dialysis) 18 Because ethnic data is not always readily available, this report includes an eGFR for both -Americans and non- Americans. The National Kidney Disease Education Program (NKDEP) does not endorse the use of the MDRD equation for patients that are not between the ages of 18 and 70, are , have extremes of body size, muscle mass, or nutritional status, or are non- or non-. According to the National Kidney Foundation, irrespective of diagnosis, the stage of the disease is based on the level of kidney function: Stage Description GFR(mL/min/1.73 m(2)) 1 Kidney damage with normal or decreased GFR 90 2 Kidney damage with mild decrease in GFR 60-89 3 Moderate decrease in GFR 30-59 4 Severe decrease in GFR 15-29 5 Kidney failure <15 (or dialysis) 19 SEE RESULTS BELOW [id number] AP PC TRANSFUSED 05/16/19 1135 20 Consistent with Previous Results Reported on 05/09/19 21 Consistent with Previous Results Reported on 05/09/19 22 Consistent with Previous Results Reported on 05/09/19 23 Because ethnic data is not always readily available, this report includes an eGFR for both -Americans and non- Americans. The National Kidney Disease Education Program (NKDEP) does not endorse the use of the MDRD equation for patients that are not between the ages of 18 and 70, are , have extremes of body size, muscle mass, or nutritional status, or are non- or non-. According to the National Kidney Foundation, irrespective of diagnosis, the stage of the disease is based on the level of kidney function: Stage Description GFR(mL/min/1.73 m(2)) 1 Kidney damage with normal or decreased GFR 90 2 Kidney damage with mild decrease in GFR 60-89 3 Moderate decrease in GFR 30-59 4 Severe decrease in GFR 15-29 5 Kidney failure <15 (or dialysis) 24 SEE RESULTS BELOW [id number] AP PC TRANSFUSED 05/11/19 1328 25 Because ethnic data is not always readily available, this report includes an eGFR for both -Americans and non- Americans. The National Kidney Disease Education Program (NKDEP) does not endorse the use of the MDRD equation for patients that are not between the ages of 18 and 70, are , have extremes of body size, muscle mass, or nutritional status, or are non- or non-. According to the National Kidney Foundation, irrespective of diagnosis, the stage of the disease is based on the level of kidney function: Stage Description GFR(mL/min/1.73 m(2)) 1 Kidney damage with normal or decreased GFR 90 2 Kidney damage with mild decrease in GFR 60-89 3 Moderate decrease in GFR 30-59 4 Severe decrease in GFR 15-29 5 Kidney failure <15 (or dialysis) 26 [id number] pheresis 27 Extended workup not necessary. Results called to [id number] by [id number] at 1950 on 05/09/19. DR. RVIER notified by [id number] at 1948 on 05/09/19. OK to continue transfusions. 28 Allergic Reviewed by Donna River MD 29 SEE RESULTS BELOW [id number] AP PC TRANSFUSED 05/09/19 1422 [id number] AP PC TRANSFUSED 05/09/19 1607 30 SEE RESULTS BELOW [id number] OP PHPLT TRANSFUSED 05/09/19 1746 31 Critical Result HGB:5.0 Called to and read back by: [id number] at: 05/09/2019 13:15:30 by:[id number] 32 Critical Result PLT:8 Called to and read back by: [id number] at: 05/09/2019 13:15:30 by:[id number] 33 Because ethnic data is not always readily available, this report includes an eGFR for both -Americans and non- Americans. The National Kidney Disease Education Program (NKDEP) does not endorse the use of the MDRD equation for patients that are not between the ages of 18 and 70, are , have extremes of body size, muscle mass, or nutritional status, or are non- or non-. According to the National Kidney Foundation, irrespective of diagnosis, the stage of the disease is based on the level of kidney function: Stage Description GFR(mL/min/1.73 m(2)) 1 Kidney damage with normal or decreased GFR 90 2 Kidney damage with mild decrease in GFR 60-89 3 Moderate decrease in GFR 30-59 4 Severe decrease in GFR 15-29 5 Kidney failure <15 (or dialysis) 34 Because ethnic data is not always readily available, this report includes an eGFR for both -Americans and non- Americans. The National Kidney Disease Education Program (NKDEP) does not endorse the use of the MDRD equation for patients that are not between the ages of 18 and 70, are , have extremes of body size, muscle mass, or nutritional status, or are non- or non-. According to the National Kidney Foundation, irrespective of diagnosis, the stage of the disease is based on the level of kidney function: Stage Description GFR(mL/min/1.73 m(2)) 1 Kidney damage with normal or decreased GFR 90 2 Kidney damage with mild decrease in GFR 60-89 3 Moderate decrease in GFR 30-59 4 Severe decrease in GFR 15-29 5 Kidney failure <15 (or dialysis) 35 SEE RESULTS BELOW [id number] PC TRANSFUSED 04/19/19 1129 [id number] [facility] TRANSFUSED 04/19/19 0946 36 Test Performed by: [facility] [id number] [place] [address] [employer] Compressor Operator: Rodriguez Sebastian M.D. Ph.D.; CLIA# [id number] 37 Because ethnic data is not always readily available, this report includes an eGFR for both -Americans and non- Americans. The National Kidney Disease Education Program (NKDEP) does not endorse the use of the MDRD equation for patients that are not between the ages of 18 and 70, are , have extremes of body size, muscle mass, or nutritional status, or are non- or non-. According to the National Kidney Foundation, irrespective of diagnosis, the stage of the disease is based on the level of kidney function: Stage Description GFR(mL/min/1.73 m(2)) 1 Kidney damage with normal or decreased GFR 90 2 Kidney damage with mild decrease in GFR 60-89 3 Moderate decrease in GFR 30-59 4 Severe decrease in GFR 15-29 5 Kidney failure <15 (or dialysis) 38 Because ethnic data is not always readily available, this report includes an eGFR for both -Americans and non- Americans. The National Kidney Disease Education Program (NKDEP) does not endorse the use of the MDRD equation for patients that are not between the ages of 18 and 70, are , have extremes of body size, muscle mass, or nutritional status, or are non- or non-. According to the National Kidney Foundation, irrespective of diagnosis, the stage of the disease is based on the level of kidney function: Stage Description GFR(mL/min/1.73 m(2)) 1 Kidney damage with normal or decreased GFR 90 2 Kidney damage with mild decrease in GFR 60-89 3 Moderate decrease in GFR 30-59 4 Severe decrease in GFR 15-29 5 Kidney failure <15 (or dialysis) 39 Because ethnic data is not always readily available, this report includes an eGFR for both -Americans and non- Americans. The National Kidney Disease Education Program (NKDEP) does not endorse the use of the MDRD equation for patients that are not between the ages of 18 and 70, are , have extremes of body size, muscle mass, or nutritional status, or are non- or non-. According to the National Kidney Foundation, irrespective of diagnosis, the stage of the disease is based on the level of kidney function: Stage Description GFR(mL/min/1.73 m(2)) 1 Kidney damage with normal or decreased GFR 90 2 Kidney damage with mild decrease in GFR 60-89 3 Moderate decrease in GFR 30-59 4 Severe decrease in GFR 15-29 5 Kidney failure <15 (or dialysis) 40 Because ethnic data is not always readily available, this report includes an eGFR for both -Americans and non- Americans. The National Kidney Disease Education Program (NKDEP) does not endorse the use of the MDRD equation for patients that are not between the ages of 18 and 70, are , have extremes of body size, muscle mass, or nutritional status, or are non- or non-. According to the National Kidney Foundation, irrespective of diagnosis, the stage of the disease is based on the level of kidney function: Stage Description GFR(mL/min/1.73 m(2)) 1 Kidney damage with normal or decreased GFR 90 2 Kidney damage with mild decrease in GFR 60-89 3 Moderate decrease in GFR 30-59 4 Severe decrease in GFR 15-29 5 Kidney failure <15 (or dialysis) 41 Because ethnic data is not always readily available, this report includes an eGFR for both -Americans and non- Americans. The National Kidney Disease Education Program (NKDEP) does not endorse the use of the MDRD equation for patients that are not between the ages of 18 and 70, are , have extremes of body size, muscle mass, or nutritional status, or are non- or non-. According to the National Kidney Foundation, irrespective of diagnosis, the stage of the disease is based on the level of kidney function: Stage Description GFR(mL/min/1.73 m(2)) 1 Kidney damage with normal or decreased GFR 90 2 Kidney damage with mild decrease in GFR 60-89 3 Moderate decrease in GFR 30-59 4 Severe decrease in GFR 15-29 5 Kidney failure <15 (or dialysis) 42 Because ethnic data is not always readily available, this report includes an eGFR for both -Americans and non- Americans. The National Kidney Disease Education Program (NKDEP) does not endorse the use of the MDRD equation for patients that are not between the ages of 18 and 70, are , have extremes of body size, muscle mass, or nutritional status, or are non- or non-. According to the National Kidney Foundation, irrespective of diagnosis, the stage of the disease is based on the level of kidney function: Stage Description GFR(mL/min/1.73 m(2)) 1 Kidney damage with normal or decreased GFR 90 2 Kidney damage with mild decrease in GFR 60-89 3 Moderate decrease in GFR 30-59 4 Severe decrease in GFR 15-29 5 Kidney failure <15 (or dialysis) 43 Because ethnic data is not always readily available, this report includes an eGFR for both -Americans and non- Americans. The National Kidney Disease Education Program (NKDEP) does not endorse the use of the MDRD equation for patients that are not between the ages of 18 and 70, are , have extremes of body size, muscle mass, or nutritional status, or are non- or non-. According to the National Kidney Foundation, irrespective of diagnosis, the stage of the disease is based on the level of kidney function: Stage Description GFR(mL/min/1.73 m(2)) 1 Kidney damage with normal or decreased GFR 90 2 Kidney damage with mild decrease in GFR 60-89 3 Moderate decrease in GFR 30-59 4 Severe decrease in GFR 15-29 5 Kidney failure <15 (or dialysis) 44 [facility] Severe Sepsis and Septic Shock Management Bundle Measure requires all lactic acids initially measuring >2.0 mmol/L be repeated. 45 Because ethnic data is not always readily available, this report includes an eGFR for both -Americans and non- Americans. The National Kidney Disease Education Program (NKDEP) does not endorse the use of the MDRD equation for patients that are not between the ages of 18 and 70, are , have extremes of body size, muscle mass, or nutritional status, or are non- or non-. According to the National Kidney Foundation, irrespective of diagnosis, the stage of the disease is based on the level of kidney function: Stage Description GFR(mL/min/1.73 m(2)) 1 Kidney damage with normal or decreased GFR 90 2 Kidney damage with mild decrease in GFR 60-89 3 Moderate decrease in GFR 30-59 4 Severe decrease in GFR 15-29 5 Kidney failure <15 (or dialysis) 46 SEE RESULT BELOW Name: ARNOLDO SIMS : [address]: Jared Camp MD Acct: [id number] Unit: [id number] AGE: 68 Location: [facility] Re03/08/19 SEX: M Status: REG REF SPEC: [id number] JOEY: 03/08/[address]: Jared Camp MD REQ: [id number] RECD: 03/08/19 STATUS: KOURTNEY VINES DR: Wilder De La Garza MD _ SOURCE: URINE SPDESC: ORDERED: Urine Culture Procedure Result Reported Site Urine Culture Final 03/10/19- 0855 ML Organism 1 ACINETOBACTER BAUMANNII Matthews Count 25-50,000 (Moderate) CFU/ML 1. ACINETOBACTER BAUMANNII [facility].I.C. RX --------- ------ Cefazolin >=64 R Cefepime 4 S Ceftriaxone 16 I Ciprofloxacin <=0.25 S Gentamicin <=1 S Levofloxacin <=0.12 S Meropenem <=0.25 S Tetracycline >=16 R Pipercillin/Tazobactam 8 S Trimethoprim/Sulfamethoxazole <=20 S Contact the Microbiology Department for any additional antibiotic reporting. * ML - Main Lab . END OF REPORT DEPARTMENT OF PATHOLOGY, [address] [place] [address] Alec Massey M.D. Director [facility] # [id number] 47 SEE RESULT BELOW Name: ARNOLDO SIMS : [address]: Jared Camp MD Acct: [id number] Unit: [id number] AGE: 68 Location: [facility] Re03/08/19 SEX: M Status: REG REF SPEC: [id number] JOEY: 03/08/19-[address] [facility] [address]: Jared Camp MD REQ: [id number] RECD: 03/08/19 STATUS: KOURTNEY VINES DR: Wilder De La Garza MD _ SOURCE: BLOOD,LINE SPDESC: ORDERED: Blood Cult COMMENTS: PERIPHERAL Procedure Result Reported Site Aerobic Culture Bottle Final 03/13/19- 1619 ML No Growth Day 5 Anaerobic Culture Bottle Final 03/13/19- 1619 ML No Growth Day 5 * ML - Main Lab . END OF REPORT DEPARTMENT OF PATHOLOGY, [address] [place] [address] Alec Massey M.D. Director [facility] # [id number] 48 Because ethnic data is not always readily available, this report includes an eGFR for both -Americans and non- Americans. The National Kidney Disease Education Program (NKDEP) does not endorse the use of the MDRD equation for patients that are not between the ages of 18 and 70, are , have extremes of body size, muscle mass, or nutritional status, or are non- or non-. According to the National Kidney Foundation, irrespective of diagnosis, the stage of the disease is based on the level of kidney function: Stage Description GFR(mL/min/1.73 m(2)) 1 Kidney damage with normal or decreased GFR 90 2 Kidney damage with mild decrease in GFR 60-89 3 Moderate decrease in GFR 30-59 4 Severe decrease in GFR 15-29 5 Kidney failure <15 (or dialysis) 49 Pancytopenia. Reviewed by Donna River MD 50 SEE RESULT BELOW Name: LEVIARNOLDO : [address]: Jared Camp MD Acct: [id number] Unit: [id number] AGE: 68 Location: LAB Re03/01/19 SEX: M Status: REG REF SPEC: [id number] JOEY: 03/01/19-[address]: Jared Camp MD REQ: [id number] RECD: 03/01/19140 STATUS: KOURTNEY VINES DR: Wilder De La Garza MD _ SOURCE: URINE SPDESC: ORDERED: Urine Culture Procedure Result Reported Site Urine Culture Final 03/02/19- 1359 ML No Growth (<1,000 CFU/mL) * ML - Main Lab . END OF REPORT DEPARTMENT OF PATHOLOGY, [address] [place] [address] Alec Massey M.D. Director [facility] # [id number] 51 Because ethnic data is not always readily available, this report includes an eGFR for both -Americans and non- Americans. The National Kidney Disease Education Program (NKDEP) does not endorse the use of the MDRD equation for patients that are not between the ages of 18 and 70, are , have extremes of body size, muscle mass, or nutritional status, or are non- or non-. According to the National Kidney Foundation, irrespective of diagnosis, the stage of the disease is based on the level of kidney function: Stage Description GFR(mL/min/1.73 m(2)) 1 Kidney damage with normal or decreased GFR 90 2 Kidney damage with mild decrease in GFR 60-89 3 Moderate decrease in GFR 30-59 4 Severe decrease in GFR 15-29 5 Kidney failure <15 (or dialysis) 52 SEE RESULT BELOW Name: ARNOLDO SIMS : [address]: Jared Camp MD Acct: [id number] Unit: [id number] AGE: 68 Location: [facility] Re02/22/19 SEX: M Status: REG REF SPEC: [id number] JOEY: 02/22/19-[address]: Jared Camp MD REQ: [id number] RECD: 02/22/19 STATUS: KOURTNEY VINES DR: Wilder De La Garza MD _ SOURCE: URINE SPDESC: ORDERED: Urine Culture Procedure Result Reported Site Urine Culture Final 02/24/19- 1110 ML Organism 1 ACINETOBACTER BAUMANNII Matthews Count 25-50,000 (Moderate) CFU/ML 1. ACINETOBACTER BAUMANNII M.I.C. RX --------- ------ Cefazolin >=64 R Cefepime 4 S Ceftriaxone 16 I Ciprofloxacin <=0.25 S Gentamicin <=1 S Levofloxacin <=0.12 S Meropenem <=0.25 S Tetracycline >=16 R Pipercillin/Tazobactam 8 S Trimethoprim/Sulfamethoxazole <=20 S Contact the Microbiology Department for any additional antibiotic reporting. * ML - Main Lab . END OF REPORT DEPARTMENT OF PATHOLOGY, [address] [place] [address] Alec Massey M.D. Director [facility] # [id number] 53 Because ethnic data is not always readily available, this report includes an eGFR for both -Americans and non- Americans. The National Kidney Disease Education Program (NKDEP) does not endorse the use of the MDRD equation for patients that are not between the ages of 18 and 70, are , have extremes of body size, muscle mass, or nutritional status, or are non- or non-. According to the National Kidney Foundation, irrespective of diagnosis, the stage of the disease is based on the level of kidney function: Stage Description GFR(mL/min/1.73 m(2)) 1 Kidney damage with normal or decreased GFR 90 2 Kidney damage with mild decrease in GFR 60-89 3 Moderate decrease in GFR 30-59 4 Severe decrease in GFR 15-29 5 Kidney failure <15 (or dialysis) Procedures Date Code Description Status 07/04/2016 64994581 Colonoscopy Completed Medical Devices Description No Information Available Encounters Type Date Location Provider Dx Diagnosis Office Visit 05/08/2019 [facility] Wilder De La Garza M.D. I10 Essential ( primary) 11:15a hypertension Assessments Date Code Description Provider 08/01/2019 I10 Essential (primary) hypertension Wilder De La Garza M.D. 08/01/2019 H61.21 Impacted cerumen, right ear Wilder De La Garza M.D. 05/08/2019 I10 Essential (primary) hypertension Wilder De La Garza M.D. Plan of Treatment Future Appointment(s):12/04/2019 1:15 pm - Wilder De La Garza M.D. at [facility]08/01/2019 - Wilder De La Garza M.D.I10 Essential (primary) hypertensionComments: Well controlled on current medications.Follow up:CPE after November 30.H61.21 Impacted cerumen, right earComments:His wax primarily his right up against the eardrum.Given his known chronic perforation I do not think attempting at removing the wax is appropriate with the tools I have.Referral to ENTFollow up: Referral to [facility] for cerumen removal.Recommendations:[facility] Address: [address] [place] [address] Functional Status Description No Information Available Mental Status Description No Information Available Referrals Refer to Dr Reason for Referral Status Appt Date Dain Yanes MD Referral to [facility] for cerumen removal. Scheduled - - Please contact Pt to schedule appt. - - Please fax appointment date/time to [facility], . [facility] [address] [place] [phone]
--- NOTE | 2019-09-15 19:57 | ED ---
Laceration/Wound HPI - HPI Summary HPI Summary: Patient complains of laceration to volar surface of distal left thumb from table saw today. Denies any other pain, urinary symptoms. No anti-coag. - History of Current Complaint Stated Complaint: LT THUMB INJURY PER PT Time Seen by Provider: 09/15/19 19:45 Hx Obtained From: Patient Mechanism of Injury: Sharp/Blunt Trauma Onset/Duration: Sudden Onset Aggravating: Nothing Alleviating: Nothing Current Severity: Mild Pain Intensity: 1 Pain Scale Used: 0-10 Numeric Associated Signs & Symptoms: Negative - Additional Pertinent History Primary Care Physician: [id number] - Allergy/Home Medications Allergies/Adverse Reactions: Allergies Allergy/AdvReac Type Severity Reaction Status Date / Time No Known Allergies Allergy Verified 09/15/19 16:02 Home Medications: Home Medications Cholecalciferol TAB* [Vitamin D TAB*] 1,000 unit PO QAM 05/13/14 [History Confirmed 05/16/19] Diltiazem CD CAP* [Cardizem CD CAP*] 180 mg PO QAM 05/13/14 [History Confirmed 05/16/19] Hydrochlorothiazide TAB* [Hydrodiuril TAB*] 12.5 mg PO QAM 05/13/14 [History Confirmed 05/16/19] Losartan Potassium 100 mg PO QAM 12/21/17 [History Confirmed 05/16/19] Leadore-3 Fatty Acids/Fish Oil [Leadore 3 1,000 mg Softgel] 1 cap PO QAM 12/21/17 [ History Confirmed 05/16/19] Ibuprofen TAB* [Advil TAB*] 200 - 600 mg PO Q6H PRN 08/08/18 [History Confirmed 05/16/19] Magnesium Oxide [Magnesium] 2 tab BID 05/16/19 [History Confirmed 05/16/19] Hydrocodone/Acetaminophen [[place] Aqua 5-325 Tablet] 1 each PO Q6HR PRN 7 Days #28 tablet MDD 4 07/16/19 [Rx] PMH/Surg Hx/FS Hx/Imm Hx Endocrine/Hematology History: Denies: Hx Anticoagulant Therapy, Hx Bone Marrow Disease, Hx Diabetes, Hx Sickle Cell Disease, Hx Anemia Cardiovascular History: Reports: Hx Hypertension Denies: Other Cardiovascular Problems/Disorders Respiratory History: Reports: Hx Asthma - A YOUNG CHILD Denies: Hx Chronic Obstructive Pulmonary Disease (COPD), Other Respiratory Problems/Disorders GI History: Denies: Other GI Disorders History: Reports: Hx Kidney Stones - HX OF, Other Problems/Disorders - HX BLADDER CARCINOMA, HEMATURIA, PROSTATE CA Denies: Hx Dialysis, Hx Renal Disease Musculoskeletal History: Reports: Hx Arthritis - RIGHT KNEE, HANDS, Other Musculoskeletal History - RIGHT TKR 01/18, Sensory History: Reports: Hx Contacts or Glasses - GLASSES, Hx Hearing Aid - BILAT - WILL NOT WEAR DOS, PT PREFERENCE Denies: Hx Cataracts, Hx Glaucoma Opthamlomology History: Reports: Hx Contacts or Glasses - GLASSES Denies: Hx Cataracts, Hx Glaucoma Neurological History: Denies: Hx Dementia, Hx Seizures, Other Neuro Impairments/Disorders - Cancer History Cancer Type, Location and Year: bladder. PROSTATE CA 2019 Hx Chemotherapy: Yes - Surgical History Surgery Procedure, Year, and Place: BLADDER CANCER 2009 [facility]. SKIN GRAFT ON EAR DRUM- RIGHT-1978[place], [place]. RIGHT KNEE SCOPING 06/16 [facility]. BLADDER LESION 08/2014 [facility]. BLADDER CA 11/15 [facility]. BLADDER TUMOR 07/21 [facility]. RIGHT TKR [facility]. BILATERAL CATARACTS 08/14/18, 08/21/18 [facility]. PROSTATE BX 01/19 [facility] Hx Anesthesia Reactions: No Infectious Disease History: No Infectious Disease History: Reports: Traveled Outside the [place] in Last 30 Days - [place] two weeks ago - Family History Known Family History: Positive: Non-Contributory - Social History Alcohol Use: Daily Alcohol Amount: 1 drink Substance Use Type: Reports: None Smoking Status (MU): Former Smoker Amount Used/How Often: 1/2 PPD FOR 45+ YRS Length of Time of Smoking/Using Tobacco: 45+ YRS Have You Smoked in the Last Year: No Review of Systems Constitutional: Negative Eyes: Negative ENT: Negative Cardiovascular: Negative Respiratory: Negative Gastrointestinal: Negative Genitourinary: Negative Musculoskeletal: Negative Skin: Other Neurological/Mental Status: Negative Psychological: Normal All Other Systems Reviewed And Are Negative: Yes Physical Exam - Summary Physical Exam Summary: Torn tissue on surface of distal left thumb. Tissue removed by table saw. No indication for suturing. Minimal involvement of the nail. Nailbed intact. Normal flexion and extension against resistance at each individual joint deformity. PMS intact. Triage Information Reviewed: Yes Vital Signs On Initial Exam: Initial Vitals Temp Pulse Resp BP Pulse Ox 96.9 F 95 16 130/73 97 09/15/19 15:59 09/15/19 15:59 09/15/19 15:59 09/15/19 15:59 09/15/19 15:59 Vital Signs Reviewed: Yes Appearance: Positive: Well-Appearing Skin: Positive: Warm Head/Face: Positive: Normal Head/Face Inspection Eyes: Positive: Normal Neck: Positive: Supple Respiratory/Lung Sounds: Positive: Clear to Auscultation Cardiovascular: Positive: Normal Abdomen Description: Positive: Nontender Musculoskeletal: Positive: Normal Neurological: Positive: Normal Psychiatric: Positive: Normal AVPU Assessment: Alert - [place] Coma Scale Best Eye Response: 4 - Spontaneous Best Motor Response: 6 - Obeys Commands Best Verbal Response: 5 - Oriented Coma Scale Total: 15 Procedures - Sedation Patient Received Moderate/Deep Sedation with Procedure: No Diagnostics - Vital Signs Vital Signs Temp Pulse Resp BP Pulse Ox 09/15/19 18:00 98 F 76 16 160/105 98 09/15/19 15:59 96.9 F 95 16 130/73 97 - Laboratory Lab Statement: Any lab studies that have been ordered have been reviewed, and results considered in the medical decision making process. Laceration Repair Course/Dx - Course Course Of Treatment: Patient complains of laceration to volar surface of distal left thumb from table saw today. Denies any other pain, urinary symptoms. No anti-coag. Vital signs within normal limits. No indication for suturing. Wound cleaned with chlorhexidine, and then rinsed under the faucet. Bacitracin applied to wound and dressing was applied. - Clinical Impression Provider Diagnoses: Injury of thumb, left, Abrasion Discharge ED - Sign-Out/Discharge Documenting (check all that apply): Patient Departure - Discharge Plan Condition: Stable Disposition: HOME Patient Education Materials: Abrasion (ED) Referrals: Wilder De La Garza MD [Primary Care Provider] - Additional Instructions: You may wash wound with warm running water and soap. Then cover with antibiotic ointment and dressing until healed. Follow-up with primary care. Return to the ED for any new or worsening symptoms. - Billing Disposition and Condition Condition: STABLE Disposition: Home
[2019-09-15] MEDS ORDERED: Bacitracin OINTMENT* 0.5% 0.5 oz TUBE TOPICAL ONE (20:29)
[2019-09-15] MEDS ORDERED: Tetan/Diph/Pertus SYR(Tdap)* 0.5 ML SYR(BOOSTRIX) use SYR contains LATEX IM ONE (20:38)
[2019-09-15 20:56] VITALS: BP 141/86
== END 2019-09-15 20:56 | disposition home or self-care (01) ==
LOC: ED 15:56
DX: S60.312A Abrasion of left thumb, initial encounter (principal); S61.012A Laceration without foreign body of left thumb without damage to nail, initial encounter; W29.8XXA Contact with other powered hand tools and household machinery, initial encounter; Y92.9 Unspecified place or not applicable; Z87.891 Personal history of nicotine dependence; I10 Essential (primary) hypertension
CPT/HCPCS: 90471; 90715; 99282; A9270-GY

== ENCOUNTER 2020-04-14 18:05 | Inpatient (IN) ==
[2020-04-14] MEDS ORDERED: NS 0.9% 1000 ml BAG 1,000 ML IV ONE (18:36)
[2020-04-14 18:49] LABS: ABS Eosinophils 0.1 10^3/ul (0-0.6); ABS Lymphocytes 0.8 10^3/ul (1.0-4.8); ABS Monocytes 0.6 10^3/ul (0-0.8); ABS Neutrophils 6.1 10^3/ul (1.5-7.7); Eosinophil % 1.2 %; Hematocrit 38 % (42-52); Hemoglobin 13.2 g/dL (14.0-18.0); Lymphocyte % 10.6 %; Mean Corpuscular HGB Conc 35 g/dL (31-36); Mean Corpuscular Hemoglobin 33 pg (27-31); Mean Corpuscular Volume 95 fL (80-94); Mean Platelet Volume 7.6 fL (7.4-10.4); Platelet Count 166 10^3/uL (150-450); Red Blood Count 3.99 10^6 /uL (4.18-5.48); Red Cell Distribution Width 15 % (10-15); White Blood Count 7.7 10^3/uL (3.5-10.8)
[2020-04-14 19:00] LABS: Activated Partial Thrombo Time 28.5 seconds (26.0-38.0); INR 0.94 (0.82-1.09)
[2020-04-14 19:01] LABS: Urine Appearance Clear; Urine Bilirubin Negative (Negative); Urine Blood 1+ (Negative); Urine Color Straw; Urine Glucose Negative (Negative); Urine Ketones Negative (Negative); Urine Nitrite Negative (Negative); Urine Protein Negative (Negative); Urine Specific Gravity 1.005 (1.010-1.030); Urine Urobilinogen Negative (Negative)
[2020-04-14 19:13] LABS: Urine Bacteria Absent (Absent); Urine Red Blood Cell Trace(0-2/hpf) (Absent); Urine White Blood Cell Trace(0-5/hpf) (Absent)
[2020-04-14 20:28] LABS: BUN/Creatinine Ratio 22.4 (8-20); EGFR African American 108.8 (>60); EGFR Non-African American 89.9 (>60)
[2020-04-14 20:29] LABS: Calcium 9.2 mg/dL (8.6-10.3)
[2020-04-14 20:30] LABS: Albumin/Globulin Ratio 1.7 (1-3); Globulin 2.4 g/dL (2-4); HDL Cholesterol 63.4 mg/dL; Total Bilirubin 0.6 mg/dL (0.2-1.0); Total Protein 6.4 g/dL (6.4-8.9)
[2020-04-14] MEDS ORDERED: Dexamethasone IV 4 MG/ML VIAL 1 ml VIAL IV SLOW PU ONE (21:21)
[2020-04-14] MEDS ORDERED: levETIRAcetam 1000MG IVPREMIX 1,000 MG/100 ML BAG IVPB ONE (21:26)
[2020-04-14] MEDS ORDERED: Gadoteridol (CONTRAST) 279.3 MG/ML 10 ML IV ONE (23:05)
[2020-04-14] MEDS: Enoxaparin 40 MG/0.4 ML SYR SUBCUT SCH (23:43)
[2020-04-15] MEDS: Dexamethasone IV 4 MG/ML VIAL 1 ml VIAL IV SLOW PU SCH ×4 (03:05→21:29)
[2020-04-15] MEDS: levETIRAcetam 500 MG IVPREMIX 500 MG/100 ML BAG IV SCH ×2 (08:44→21:29)
[2020-04-15] MEDS ORDERED: Iohexol 300 (CONTRAST) 10 ML SDV IV ONE (11:53)
[2020-04-15] MEDS: Enoxaparin 40 MG/0.4 ML SYR SUBCUT SCH (21:29)
[2020-04-16] MEDS: Dexamethasone IV 4 MG/ML VIAL 1 ml VIAL IV SLOW PU SCH ×4 (03:42→20:44)
[2020-04-16] MEDS: levETIRAcetam 500 MG IVPREMIX 500 MG/100 ML BAG IV SCH ×2 (07:42→20:44)
[2020-04-16] MEDS ORDERED: Gadobenate (CONTRAST) 529 MG/ML 10 ML SDV IV ONE (13:17)
[2020-04-16] MEDS: Enoxaparin 40 MG/0.4 ML SYR SUBCUT SCH (20:44)
[2020-04-17] MEDS: Dexamethasone IV 4 MG/ML VIAL 1 ml VIAL IV SLOW PU SCH (02:30)
[2020-04-17] MEDS: levETIRAcetam 500 MG IVPREMIX 500 MG/100 ML BAG IV SCH (08:21)
[2020-04-17 08:39] VITALS: BP 143/80
== END 2020-04-17 11:35 | disposition home or self-care (01) | DRG 93 ==
LOC: ED 18:05 → MEDTELE 20:17
PROVIDERS: ADMIT Internal Medicine; ATTEND Hospitalist